=== PATIENT | male | born 1950 | race Caucasian/White ===

== ENCOUNTER 2016-06-07 11:23 | Day surgery (SDC) | payer OTHER ==
[2016-06-06 11:48] VITALS: BMI 25.5
[~2016-06-07] VITALS: Ht 180.3 cm; Wt 85.0 kg
[~2016-06-07 11:23] MED LIST: CEFAZOLIN 1 GM INJ ONE; GLYCOPYRROLATE 0.4 MG INJ ONE; LIDOCAINE 2% (SDV) 5 ML INJ ONE; METH10TA2 PO; METO50TA16 PO; NEOSTIGMINE 3 MG/3 ML SYRINGE ONE; PRED20TA PO; PROPOFOL 200 MG INJ ONE; ROCURONIUM 50 MG INJ ONE; SUCCINYLCHOLINE CHLORIDE 100 MG/5 ML SYG IV ONE
[2016-06-07] MEDS ORDERED: CEFAZOLIN 2 GM/50 ML (PMX) 50 ML IVPB ONE (12:00)
[2016-06-07 12:33] VITALS: Ht 180.3 cm; Wt 85.0 kg
[2016-06-07 12:34] VITALS: BP 160/96; PULSE 113; RESP 18
--- NOTE | 2016-06-07 12:54 | RADRPT ---
PROCEDURE: XR Chest. CLINICAL INDICATION: Preoperative for inguinal hernia repair. TECHNIQUE: Single frontal view. COMPARISON: None. FINDINGS: The lungs are clear. The heart size is normal. There is no pleural effusion. There is no pneumothorax. IMPRESSION: 1. Normal chest radiograph. RPTAT: QQ .Tomas Bowens MD, MD Date Time Electronically viewed and signed by .Tomas Bowens MD, on 06/07/2016 12:53 .R/
[2016-06-07 12:59] LABS: BASOPHILS % 0.5 % (0.0-2.0); EOSINOPHILS # 0.2 10^3/ul (0.0-0.5); EOSINOPHILS % 2.9 % (0.0-7.0); HEMATOCRIT 41.7 % (42.0-52.0); HEMOGLOBIN 14.1 g/dl (14.0-18.0); LYMPHOCYTES % 14.9 % (15.0-51.0); MEAN CORPUSCULAR HGB CONC 33.8 g/dl (32.0-37.0); MONOCYTE # 0.7 10^3/ul (0.3-0.9); MONOCYTES % 9.8 % (0.0-11.0); NEUTROPHIL # 4.8 10^3/ul (1.6-7.5); NEUTROPHILS % 71.9 % (39.0-77.0); PLATELET COUNT 74 10^3/UL (140-440); RED BLOOD COUNT 4.86 10^6/ul (4.70-6.10); RED CELL DISTRIBUTION WIDTH 13.3 % (11.5-14.5); UNCORRECTED WBC 6.7 10^3/ul (4.8-10.8); WHITE BLOOD COUNT 6.7 10^3/ul (4.8-10.8)
[2016-06-07 13:02] LABS: CONDITION 1
[2016-06-07 13:04] LABS: CREATININE 0.49 mg/dl (0.61-1.24); INR 0.93; POTASSIUM 4.4 mmol/L (3.5-5.1); PROTIME 12.5 Sec (12.2-14.2)
[2016-06-07 13:05] LABS: PARTIAL THROMBOPLASTIN TIME 33.3 Sec (25.0-35.0)
[2016-06-07] MEDS ORDERED: FENTAnyl 50 MCG/ML VIAL ONE (13:35)
[2016-06-07 13:36] LABS: PLATELET ESTIMATE PLT APPEAR DECREASED
--- NOTE | 2016-06-07 14:04 | RADRPT ---
Vent Rate: 107 bpm RR Interval: 0 msec IA Interval: 176 msec QRS Duration: 84 msec QT Interval: 322 msec QTC Interval: 429 msec P-R-T [place]: 67 - 71 - 80 degrees Sinus tachycardia Possible Anterior infarct , age undetermined Abnormal ECG Electronically Signed By: Yan Greene [id number]
[2016-06-07] MEDS: SOD CHLORIDE 0.9% 1,000 ML IV ONE ×2 (14:16→15:02)
[2016-06-07] MEDS ORDERED: DIPHENHYDRAMINE 50 MG INJ IV PRN (14:30)
[2016-06-07] MEDS ORDERED: ALBUTEROL 0.5% (NEB) 2.5 MG/0.5 ML AMP INH ONE (14:30)
[2016-06-07] MEDS ORDERED: MEPERIDINE 25 MG INJ IV PRN (14:30)
[2016-06-07] MEDS ORDERED: METOCLOPRAMIDE 10 MG INJ IV PRN (14:30)
[2016-06-07] MEDS ORDERED: FENTAnyl 50 MCG/ML VIAL IV PRN ×3 (14:30)
[2016-06-07] MEDS ORDERED: ONDANSETRON 4 MG INJ IV PRN (14:30)
[2016-06-07] MEDS ORDERED: OXYCODONE/ACETAMINOPHEN (5/325) TAB PO PRN ×2 (14:30)
[2016-06-07] MEDS ORDERED: HYDROmorphONE (0.2 MG/ML) 10ML SYG IV PRN ×3 (14:30)
[2016-06-07 15:02] VITALS: BP 123/75; PULSE 75; RESP 18
[2016-06-07 15:05] VITALS: BP 135/79; PULSE 75
[2016-06-07 15:10] VITALS: BP 134/82; PULSE 76
[2016-06-07 15:41] VITALS: BP 133/65; PULSE 59; RESP 16
--- NOTE | 2016-06-07 17:45 | OPR ---
DATE OF OPERATION: 06/07/2016 PREOPERATIVE DIAGNOSIS: Large incarcerated left inguinal hernia. POSTOPERATIVE DIAGNOSIS: Large incarcerated left inguinal hernia. OPERATION PERFORMED: Left inguinal herniorrhaphy. ANESTHESIA: General. ANESTHESIOLOGIST: LEORA RUSSELL MD SURGEON: Amador Madden MD OUTSIDE MAINTENANCE WORKER: None. INDICATIONS FOR PROCEDURE: The patient is a 66-year-old male who presented with a very longstanding extremely large left inguinal hernia extending into the left scrotum. CAT scan revealed evidence of bowel within the scrotum. The patient stated that he could sometimes reduce it if he laid down. He was seen in surgical consultation and on exam was found to have an incarcerated hernia consisten t with the radiographic findings. He was counseled as to the risks versus benefits of repair. He c onsented and was scheduled for surgery. DESCRIPTION OF PROCEDURE: The patient was brought to the operating theater, placed under general an esthesia. The left groin was then shaved, prepped and draped in usual sterile fashion. Approximate ly 6 cm incision was made directly over the visually obvious hernia. Subcutaneous tissue was dissec fabien with cautery. An extremely large hernia sac very thickened was encountered in the subcutaneous space. It contained bowel and with gentle manipulation with a gloved hand, the bowel was able to be reduced back into the abdominal cavity. The sac with extended tumor was adherent to the left testi emily. It was then opened at the proximal portion into the internal ring. It was meticulously dissec fabien off of the cord structures and then it was clamped at its base and triply ligated first with 2-0 Vicryl sutures and then with 0 Prolene suture. Proximal portion of the sac was then transected and sent for pathologic analysis. At this point, Dr. Madden spent several minutes determining whether o r not mesh reinforcement could be accomplished. Due to the sac, the spermatic vessels were complete ly encased by scar tissue as the patient had a previous abscess in this area. Dr. Madden made the de cision that it would not be prudent to place mesh due to the risk of injury to testicular artery and also to an increased likelihood of infection. Therefore, the wound was irrigated. Minimal bleedin g was controlled with cautery. A #7 flat Ad-Burns drain was then brought through the left late ral side of the lower abdomen, cut to size and laid within the wound. The skin was reapproximated w ith skin alexis. At the conclusion of the procedure, Dr. Madden palpated the left testicle and pull ed it back into its normal anatomic location within the left scrotal sac. The patient tolerated pro cedure well. ESTIMATED BLOOD LOSS: 30 mL. There were no complications and the patient was transported in stable condition to the recovery room . Dictated By: AMADOR MAY/VALENCIA Conf#: [id number] DID#: [id number]
== END 2016-06-07 17:00 | disposition home or self-care (01) ==
LOC: SDS 11:23
PROVIDERS: ATTEND Surgery Surgical Oncology
DX: K40.30 Unilateral inguinal hernia, with obstruction, without gangrene, not specified as recurrent (principal); I10 Essential (primary) hypertension; J44.9 Chronic obstructive pulmonary disease, unspecified
CPT/HCPCS: 49507; 71010; 80048; 85025; 85610; 85730; 88302; 93005; J0330; J0690; J2710; J3010; Z7512; Z7610

== ENCOUNTER 2016-06-11 11:02 | Inpatient (IN) | payer OTHER ==
[~2016-06-11] VITALS: Ht 180.3 cm; Wt 83.3 kg
--- NOTE | 2016-06-11 13:21 | ERA ---
ER Documentation Chief Complaint Date/Time DATE: 06/11/16 TIME: 13:20 Chief Complaint inguinal hernia repair 4 days ago. HPI The patient is a 36-year-old male, presenting to the ER because of worsening severe left inguinal hernia that was repaired 4 days ago. According to the patient, the left testicle has been swollen and tender ever since the surgery, it is worse today. The pain is 10/10, worse with movement. He denies fever, chills, neck pain, chest pain, dyspnea, upper abdominal pain, vomiting, dysuria , diarrhea, constipation. He does smoke, denies drinking Past medical history: Hypertension, hepatitis C Past surgical history: umbilical herniorrhaphy ROS All systems reviewed and are negative except as per history of present illness. Medications Home Meds Discontinued Reported Medications Methadone Hcl* (Methadone*) 10 Mg Tab, 40 MG PO DAILY, TAB 02/16/15 Metoprolol Succinate* (Toprol XL*) 50 Mg Tab.er.24h, 50 MG PO DAILY, TAB 02/16/15 Prednisone* (Prednisone*) 20 Mg Tab, 20 MG PO EVERY 3 DAYS, TAB 02/16/15 Allergies Allergies: Coded Allergies: Sulfa (Sulfonamide Antibiotics) (Unverified Allergy, Unknown, HIVES, ) PMhx/Soc History of Surgery: Yes (UMBILICAL HERNIA, ABCESS ) Anesthesia Reaction: No Hx Neurological Disorder: No Hx Respiratory Disorders: Yes (COPD) Hx Cardiac Disorders: Yes Hx Psychiatric Problems: No Hx Miscellaneous Medical Probl: No Hx Alcohol Use: Yes Hx Substance Use: No (USED TO DO COCAINE) Hx Tobacco Use: Yes Physical Exam Vitals Vital Signs Date Time Temp Pulse Resp B/P Pulse Ox O2 Delivery O2 Flow Rate FiO2 06/11/16 11:08 98.5 112 20 163/90 98 Physical Exam Const: No acute distress. Head: Atraumatic. Eyes: Normal Conjunctiva. ENT: Normal External Ears, Nose and Mouth. Neck: Full range of motion. No meningismus. Resp: Clear to auscultation bilaterally. Cardio: Regular rate and rhythm, no murmurs. Abd: Soft, non distended, normal bowel sounds, left inguinal hernia incision is erythematous, warm to touch; left testicle is edematous and tender to touch Skin: No petechiae or rashes. Back: No midline or flank tenderness. Ext: No cyanosis, or edema. Neur: Awake and alert. No focal deficit Psych: Normal Mood and Affect. Result Diagram: 06/11/16 1400 06/11/16 1400 Results 24 hrs Laboratory Tests Test 06/11/16 14:00 06/11/16 16:14 Activated Partial Thromboplast Time 32.6Sec Alanine Aminotransferase (ALT/SGPT) 52IU/L Albumin 3.6g/dl Albumin/Globulin Ratio 1.00 Alkaline Phosphatase 80IU/L Anion Gap 16 Aspartate Amino Transf (AST/SGOT) 40IU/L Basophils # 0.010^3/ul Basophils % 0.3% Blood Urea Nitrogen 5mg/dl Calcium Level 8.7mg/dl Carbon Dioxide Level 24mmol/L Chloride Level 102mmol/L Creatinine 0.44mg/dl Direct Bilirubin 0.00mg/dl Eosinophils # 0.010^3/ul Eosinophils % 0.4% Globulin 3.60g/dl Glucose Level 144mg/dl Hematocrit 37.2% Hemoglobin 12.6g/dl INR International Normalized Ratio 0.94 Indirect Bilirubin 0.4mg/dl Lipase 34U/L Lymphocytes # 0.910^3/ul Lymphocytes % 12.2% Mean Corpuscular Hemoglobin 29.2pg Mean Corpuscular Hemoglobin Concent 33.8g/dl Mean Corpuscular Volume 86.4fl Mean Platelet Volume 7.8fl Monocytes # 0.710^3/ul Monocytes % 9.1% Neutrophils # 6.110^3/ul Neutrophils % 78.0% Nucleated Red Blood Cells # 0.010^3/ul Nucleated Red Blood Cells % 0.0/100WBC Platelet Count 23757^3/UL Potassium Level 3.9mmol/L Prothrombin Time 12.6Sec Prothrombin Time Ratio 1.0 Red Blood Count 4.3110^6/ul Red Cell Distribution Width 13.1% Sodium Level 138mmol/L Total Bilirubin 0.4mg/dl Total Protein 7.2g/dl White Blood Count 7.810^3/ul Bedside Urine Blood Negative Bedside Urine Glucose (UA) Negative Bedside Urine Ketones (LAB) Negative Bedside Urine Leukocyte Esterase (L Negative Bedside Urine Nitrite (LAB) Negative Bedside Urine Protein (LAB) Negative Bedside Urine pH (LAB) 7.0 Current Medications Medications (Trade) Dose Ordered Sig/Chikis Route PRN Reason Start Time Stop Time Status Last Admin Dose Admin Morphine Sulfate (morphine) 4 mg ONCE ONCE IM 06/11/16 14:00 06/11/16 14:01 DC 06/11/16 14:10 Ondansetron HCl (Zofran Odt) 4 mg ONCE STAT ODT 06/11/16 13:32 06/11/16 13:34 DC 06/11/16 14:10 Lidocaine (Xylocaine 1% (Mdv) 20 ml) 20 ml ONCE ONCE SC 06/11/16 14:00 06/11/16 14:02 DC Barium Sulfate (Readi-Cat 2 ( [employer] )) 450 ml ONCE ONCE PO 06/11/16 14:00 06/11/16 14:02 DC 06/11/16 14:00 Iohexol (Omnipaque 300mg/ ml) 150 ml STK-MED ONCE .ROUTE 06/11/16 16:41 06/11/16 16:42 DC 06/11/16 17:02 IV Flush 10 ml 10 ml PRN PRN IV IV PROTOCOL 06/11/16 17:30 Piperacillin Sod/ Tazobactam Sod (Zosyn 3.375gm/ 100 ml (Pmx)) 100 ml @ 200 mls/hr ONCE ONCE IVPB 06/11/16 18:00 06/11/16 18:29 Procedures/[place] [address] Radiology Main Line: [phone] DIAGNOSTIC IMAGING REPORT Patient: PRIYANKA RUTHERFORD : 1950 Age: 66 Sex: M MR #: [id number] DOS: 06/11/16 1349 Ordering MD: ANSHUL PINZON MD Location: E/R Room/Bed: PROCEDURE: CT Abdomen and Pelvis with contrast. CLINICAL INDICATION: Pain, recent hernia surgery TECHNIQUE: CT of the abdomen and pelvis was performed on a multi-detector scanner following the uncomplicated IV administration of 100 cc of Omnipaque 300. Coronal and sagittal images were reformatted from the axial data set. One or more of the following dose reduction techniques were used: automated exposure control, adjustment of the mA and/or kV according to patient size, use of iterative reconstruction technique. CTDI = 15.15 mGy. DLP = 955.62 mGy- cm. COMPARISON: None. FINDINGS: CT abdomen: Bibasilar scarring/atelectasis is noted. The heart size is normal, without pericardial effusion. Liver, gallbladder, biliary tree, pancreas, spleen, adrenal glands and kidneys are unremarkable except for benign renal cysts. No urolithiasis or obstructive uropathy is identified. The stomach is grossly unremarkable. There is no abdominal aortic aneurysm or dissection. Aortic vascular calcifications are present. There is no retroperitoneal lymphadenopathy. The chito hepatis region is clear. CT pelvis: No bowel obstruction, free intraperitoneal air or intraperitoneal is identified. There is no diverticulosis, diverticulitis or colitis. The appendix is well visualized and normal. Urinary bladder is grossly unremarkable. Left groin skin alexis are in place. Surgical drain is seen within the superficial soft tissues of the left groin and scrotum. Gas and fluid collection is identified within the scrotum superiorly, measuring approximately 5 x 3 x 5 cm (3-180), compatible with abscess, located approximately 4 cm inferior to the tip of the surgical drain The surrounding osseous structures are remarkable for diffuse degenerative spondylosis of the spine. No osteolytic or osteoblastic lesion is detected. IMPRESSION: 1. The patient is status post recent left inguinal hernia repair. Surgical drain remains in place. 2. Abscess is seen within the superior portion of the left scrotum, measuring approximately 5 x 3 x 5 cm, located approximately 4 cm inferior to the tip of the surgical drain. 3. Aortoiliac atherosclerotic calcifications are present. RPTAT: EE .Rikki Caba MD, MD Date Time Electronically viewed and signed by .Rikki Caba MD, on 06/11/2016 17: 25 .R/ CC: ANSHUL PINZON MD MEDICAL MAKING DECISION: The patient is a 66-year-old male, presenting with acute left inguinal hernia incisional abscess. He had a PICC line placed, treated with morphine 4 mg IM and Zofran ODT for nausea and Zosyn IV with good response. The differential diagnoses considered include but are not limited to cholelithiasis, cholecystitis, cystitis, pancreatitis, hepatitis, gastritis, peptic ulcer disease, gastric ulcer, appendicitis, diverticulitis, cholangitis, choledocholithiasis, partial small bowel obstruction, incarcerated/strangulated inguinal hernia Departure Diagnosis: Primary Impression: Incisional abscess Additional Impression: Anemia Condition: Stable Comments Consultation: I discussed the patient with his surgeon Dr. Madden at 1:40 PM. He was made aware of the patient condition and accepted the consult I discussed the findings with the patient. I discussed the patient with the on- call hospitalist Dr. Diehl who was made aware of the lab, the treatment, the patient condition. The patient is admitted to medical surgery bed at 4:15 PM ANSHUL PINZON MD Jun 11, 2016 13:21
[2016-06-11] MEDS ORDERED: ONDANSETRON (ODT) 4 MG TAB ODT STA (13:32)
[2016-06-11] MEDS ORDERED: LIDOCAINE 1% (MDV) 20 ML INJ SC ONE (14:00)
[2016-06-11] MEDS ORDERED: morphine 10 MG INJ IM ONE (14:00)
[2016-06-11] MEDS ORDERED: BARIUM SULF 2.1% 450 ML BTL (BERRY SMOOTHIE) PO ONE (14:00)
[2016-06-11 14:09] LABS: BASOPHILS % 0.3 % (0.0-2.0); EOSINOPHILS % 0.4 % (0.0-7.0); HEMATOCRIT 37.2 % (42.0-52.0); HEMOGLOBIN 12.6 g/dl (14.0-18.0); LYMPHOCYTES # 0.9 10^3/ul (0.8-2.9); LYMPHOCYTES % 12.2 % (15.0-51.0); MEAN CORPUSCULAR HEMOGLOBIN 29.2 pg (29.0-33.0); MEAN CORPUSCULAR HGB CONC 33.8 g/dl (32.0-37.0); MEAN CORPUSCULAR VOLUME 86.4 fl (82.0-101.0); MEAN PLATELET VOLUME 7.8 fl (7.4-10.4); MONOCYTE # 0.7 10^3/ul (0.3-0.9); MONOCYTES % 9.1 % (0.0-11.0); NEUTROPHIL # 6.1 10^3/ul (1.6-7.5); PLATELET COUNT 151 10^3/UL (140-440); RED BLOOD COUNT 4.31 10^6/ul (4.70-6.10); RED CELL DISTRIBUTION WIDTH 13.1 % (11.5-14.5); UNCORRECTED WBC 7.8 10^3/ul (4.8-10.8); WHITE BLOOD COUNT 7.8 10^3/ul (4.8-10.8)
[2016-06-11 14:20] LABS: INR 0.94; PROTIME 12.6 Sec (12.2-14.2)
[2016-06-11 14:21] LABS: PARTIAL THROMBOPLASTIN TIME 32.6 Sec (25.0-35.0)
[2016-06-11 14:28] LABS: ALBUMIN 3.6 g/dl (3.3-4.9)
[2016-06-11 14:29] LABS: POTASSIUM 3.9 mmol/L (3.5-5.1)
[2016-06-11 14:30] LABS: CONDITION 1
[2016-06-11 14:31] LABS: BILIRUBIN,INDIRECT 0.4 mg/dl (0-1.1); BILIRUBIN,TOTAL 0.4 mg/dl (0.2-1.3); CREATININE 0.44 mg/dl (0.61-1.24); TOTAL PROTEIN 7.2 g/dl (6.1-8.1)
[2016-06-11 14:32] LABS: CALCIUM 8.7 mg/dl (8.4-10.2)
[2016-06-11 16:13] LABS: URINE BLOOD (Dip) POC Negative (NEGATIVE)
--- NOTE | 2016-06-11 16:28 | RADRPT ---
PROCEDURE: Chest x-ray CLINICAL INDICATION: Post PICC line TECHNIQUE: Chest single view COMPARISON: Earlier the same day FINDINGS: In the interval, the right arm PICC line has been adjusted the tip now lies at the right atrial SVC junction. Heart is normal in size. Bony vessels normal in caliber. Lungs clear. The costophrenic angles are sharp. There is advanced degenerative change right glenohumeral joint IMPRESSION: 1. Interval adjustment of right arm PICC line with tip now at the right atrial SVC junction. 2. Advanced degenerative change right glenohumeral joint RPTAT: HH .Raul Coles MD, MD Date Time Electronically viewed and signed by .Raul Coles MD, on 06/11/2016 16:28 .W/
[2016-06-11] MEDS ORDERED: IOHEXOL 300MG/ML 150 ML BTL ONE (16:41)
--- NOTE | 2016-06-11 16:49 | RADRPT ---
PROCEDURE: XR Chest. CLINICAL INDICATION: Status post PICC line placement. TECHNIQUE: Single AP portable chest COMPARISON: 06/07/2069 FINDINGS: The cardiomediastinal silhouette is within normal limits. Right PICC line catheter tip overlying the proximal superior vena cava. . Right base linear scarring and/or atelectasis. No pleural effusion or focal infiltrate. Mild prominence pulmonary vascularity. Severe stable right degenerative watts es of the humeral head and of the humeral joint.. IMPRESSION: No evidence for active cardiopulmonary disease. RPTAT:AAJJ Physician Valentine Date Time Electronically viewed and signed by Physician Valentine on 06/11/2016 16:49 MYNOR/
--- NOTE | 2016-06-11 16:52 | RADRPT ---
PROCEDURE: XR Chest. CLINICAL INDICATION: Right PICC line catheter placement. TECHNIQUE: Single AP portable chest COMPARISON: 06/11/2016 FINDINGS: The cardiomediastinal silhouette is within normal limits. Right PICC line catheter tip overlying the proximal superior vena cava with mild redundancy. This should be withdrawn 34 cm and reinserted .T he lungs are clear though pleural effusion or focal consolidation. Right lower lobe linear scarring or atelectasis. Severe degenerative changes of the right humeral head and glenohumeral joint.. IMPRESSION: Right PICC line catheter tip overlying the superior vena cava proximally with slight redundancy. Th is should be withdrawn and reinserted as described above.. RPTAT:AAJJ Physician Valentine Date Time Electronically viewed and signed by Physician Valentine on 06/11/2016 16:51 MYNOR/
--- NOTE | 2016-06-11 17:17 | RADRPT ---
PROCEDURE: Ultrasound proximal upper extremity for PICC placement CLINICAL INDICATION: PICC placement TECHNIQUE: Sonographic evaluation of the proximal right upper extremity vessels was performed utiliz ing a high-frequency linear transducer. COMPARISON: None available FINDINGS: Limited evaluation of the proximal upper extremity for vascular access for PICC placement. Grossly, no abnormality is seen. IMPRESSION: 1. Unremarkable limited proximal right upper extremity ultrasound for PICC placement. RPTAT: PP .Rikki Caba MD, MD Date Time Electronically viewed and signed by .Rikki Caba MD, on 06/11/2016 17:16 .R/
--- NOTE | 2016-06-11 17:26 | RADRPT ---
PROCEDURE: CT Abdomen and Pelvis with contrast. CLINICAL INDICATION: Pain, recent hernia surgery TECHNIQUE: CT of the abdomen and pelvis was performed on a multi-detector scanner following the un complicated IV administration of 100 cc of Omnipaque 300. Coronal and sagittal images were reformat fabien from the axial data set. One or more of the following dose reduction techniques were used: auto mated exposure control, adjustment of the mA and/or kV according to patient size, use of iterative reconstruction technique. CTDI = 15.15 mGy. DLP = 955.62 mGy-cm. COMPARISON: None. FINDINGS: CT abdomen: Bibasilar scarring/atelectasis is noted. The heart size is normal, without pericardial effusion. L iver, gallbladder, biliary tree, pancreas, spleen, adrenal glands and kidneys are unremarkable excep t for benign renal cysts. No urolithiasis or obstructive uropathy is identified. The stomach is gr ossly unremarkable. There is no abdominal aortic aneurysm or dissection. Aortic vascular calcifications are present. T here is no retroperitoneal lymphadenopathy. The chito hepatis region is clear. CT pelvis: No bowel obstruction, free intraperitoneal air or intraperitoneal is identified. There is no divert iculosis, diverticulitis or colitis. The appendix is well visualized and normal. Urinary bladder i s grossly unremarkable. Left groin skin alexis are in place. Surgical drain is seen within the arora perficial soft tissues of the left groin and scrotum. Gas and fluid collection is identified within the scrotum superiorly, measuring approximately 5 x 3 x 5 cm (3-180), compatible with abscess, locat ed approximately 4 cm inferior to the tip of the surgical drain The surrounding osseous structures are remarkable for diffuse degenerative spondylosis of the spine. No osteolytic or osteoblastic lesion is detected. IMPRESSION: 1. The patient is status post recent left inguinal hernia repair. Surgical drain remains in place. 2. Abscess is seen within the superior portion of the left scrotum, measuring approximately 5 x 3 x 5 cm, located approximately 4 cm inferior to the tip of the surgical drain. 3. Aortoiliac atherosclerotic calcifications are present. RPTAT: EE .Rikki Caba MD, MD Date Time Electronically viewed and signed by .Rikki Caba MD, MD on 06/11/2016 17:25 .R/
[2016-06-11] MEDS ORDERED: PIPER-TAZO 3.375 GM IV (PMX) 100 ML IVPB ONE (18:00)
[2016-06-11] MEDS ORDERED: ACETAMINOPHEN 325 MG TAB PO PRN (19:30)
[2016-06-11] MEDS ORDERED: ONDANSETRON 4 MG INJ IV PRN (19:30)
[2016-06-11] MEDS ORDERED: VANCOMYCIN IV PER PHARMACY XX SCH (19:30)
[2016-06-11 20:08] VITALS: PULSE 96; TEMP 98.4
--- NOTE | 2016-06-11 20:43 | HP ---
Date/Time of Note Date/Time of Note DATE: 06/11/16 TIME: 20:32 Assessment/Plan VTE Prophylaxis VTE Prophylaxis Intervention: contraindicated VTE Contraindication Reason: blood coagulation disorder Lines/Catheters IV Catheter Type (from Nrs): PICC Line Central line still needed: Yes Assessment/Plan Assessment/Plan 66 yo male with a past medical history of essential hypertension, who was was here on 06/07/2016 for an left inguinal hernia repair, now complaining of scrotal pain and swelling. 1. Scrotal abscess post - operative - will admit the patient to med/surg, consult Dr. Madden/Jeff for management, continue with pain management, needs OR for I and D, IV antibiotics, if worsening, possible consult to urology. 2. Essential hypertension - prn hydralazine 3. GI ppx - pepcid po 4. DVT ppx - heparin answered all of his questions. as per clinical course. this history and physical took greater then 45 minutes to complete HPI/ROS Admit Date/Time Admit Date/Time Jun 11, 2016 at 19:31 Hx of Present Illness 66 yo male with a past medical history of essential hypertension, who was was here on 06/07/2016 for an left inguinal hernia repair, now complaining of scrotal pain and swelling. He states that since he left the hospital, his scrotum has been enlarging and feeling "heavy". He noticed pain, but could not differentiate between post-operative vs new pain. He does have a drain that he has been emptying serosanguineous fluid from. Otherwise he complains of fevers, chills and pain radiating up from his groin into his left inguinal canal. He denies any hematuria, dysuria, discharge, nausea/vomiting/diarrhea/constipation , loss of consciousness, headaches, bowel irregularities, chest pain, shortness of breath or other constitutional symptoms. ED course: IV antibiotics, surgery was consulted, CT abd/pelvis completed - see procedures ROS 14 point review of systems completed, please refer to HPI for any positive findings PMH/Family/Social Past Medical History Medical History: hypertension Past Surgical History umbilical hernia repair, abscess I and D, left inguinal hernia repair - 4 days ago Family History Significant Family History: no pertinent family hx Social History Alcohol Use: sober (quit drinking 3 months ago) Smoking Status: Current every day smoker (1-2 cig/day) Drug Use: heroin (previous user) Exam/Review of Systems Vital Signs Vitals Vital Signs Date Time Temp Pulse Resp B/P Pulse Ox O2 Delivery O2 Flow Rate FiO2 06/11/16 20:08 98.4 96 18 126/80 98 Room Air Exam Exam Gen Kimberley: moderate distress 2/2 to inguinal/scrotal pain, AAOx4 HEENT: NC/AT, PERRLA, EOMI, no pharyngeal erythema, no tonsillar exudates, no lymphadenopathy, no JVD, no carotid bruits NECK: supple, no thyromegaly THORAX: symmetrical, no obvious deformities CV: S1S2, RRR, no M/G/R Lungs: CTAB no W/C/R/R Abd: soft, NT/ND, +BS, no rebound, no guarding, neg HSM EXT: no edema, no ecchymosis, no clubbing, FROM : Scrotal edema, erythema tenderness to palpation, drain noted - serosanguineous drainage Neuro: CN II-XII grossly intact, no focal deficits Psych: good mentation, alert and oriented, good mood and affect Skin: multiple tattoos Labs Result Diagram: 06/11/16 1400 06/11/16 1400 Medications Medications Current Medications IV Flush 10 ml 10 ml PRN PRN IV IV PROTOCOL; Start 06/11/16 at 17:30 Piperacillin Sod/ Tazobactam Sod (Zosyn 3.375gm/ 100 ml (Pmx)) 100 ml @ 200 mls /hr Q8 IVPB ; Start 06/11/16 at 22:00 Morphine Sulfate (morphine) 2 mg Q4H PRN IV pain; Start 06/11/16 at 19:30 Ondansetron HCl (Zofran Inj) 4 mg Q6H PRN IV NAUSEA AND/OR VOMITING; Start at 19:30 Acetaminophen (Tylenol Tab) 650 mg Q6H PRN PO PAIN AND OR ELEVATED TEMP; Start 06/11/16 at 19:[address] abd/pelvis IMPRESSION: 1. The patient is status post recent left inguinal hernia repair. Surgical drain remains in place. 2. Abscess is seen within the superior portion of the left scrotum, measuring approximately 5 x 3 x 5 cm, located approximately 4 cm inferior to the tip of the surgical drain. 3. Aortoiliac atherosclerotic calcifications are present. DIANE MORRIS MD Jun 11, 2016 20:42
[2016-06-11 20:52] VITALS: BP 114/74; RESP 18
[2016-06-11 21:00] VITALS: Ht 180.3 cm; Wt 83.3 kg
[2016-06-11] MEDS: HEPARIN 5,000 UNIT/0.5 ML SYG SC SCH (21:00)
[2016-06-11] MEDS ORDERED: VANCOMYCIN 1.5 GM in SOD CHLORIDE 0.9% 250 ML IVPB SCH (22:00)
[2016-06-11] MEDS: PIPER-TAZO 3.375 GM IV (PMX) 100 ML IVPB SCH (22:32)
[2016-06-11] MEDS: SOD CHLORIDE 0.9% 1,000 ML IV SCH (22:32)
[2016-06-12] MEDS: PIPER-TAZO 3.375 GM IV (PMX) 100 ML IVPB SCH ×3 (05:28→21:36)
[2016-06-12 06:34] LABS: BASOPHILS % 0.3 % (0.0-2.0); EOSINOPHILS # 0.3 10^3/ul (0.0-0.5); EOSINOPHILS % 4.4 % (0.0-7.0); HEMATOCRIT 33.3 % (42.0-52.0); HEMOGLOBIN 11.7 g/dl (14.0-18.0); LYMPHOCYTES # 1.2 10^3/ul (0.8-2.9); LYMPHOCYTES % 21.3 % (15.0-51.0); MEAN CORPUSCULAR HGB CONC 35.3 g/dl (32.0-37.0); MEAN CORPUSCULAR VOLUME 85.2 fl (82.0-101.0); MEAN PLATELET VOLUME 8.2 fl (7.4-10.4); MONOCYTE # 0.7 10^3/ul (0.3-0.9); NEUTROPHIL # 3.6 10^3/ul (1.6-7.5); PLATELET COUNT 134 10^3/UL (140-440); RED BLOOD COUNT 3.91 10^6/ul (4.70-6.10); RED CELL DISTRIBUTION WIDTH 12.7 % (11.5-14.5); UNCORRECTED WBC 5.8 10^3/ul (4.8-10.8); WHITE BLOOD COUNT 5.8 10^3/ul (4.8-10.8)
[2016-06-12 06:59] LABS: POTASSIUM 4.2 mmol/L (3.5-5.1)
[2016-06-12 07:02] LABS: CREATININE 0.57 mg/dl (0.61-1.24)
[2016-06-12 07:03] LABS: CALCIUM 8.5 mg/dl (8.4-10.2); MAGNESIUM 2.1 mg/dl (1.7-2.5)
[2016-06-12 07:06] LABS: CONDITION 1
[2016-06-12 08:01] VITALS: BP 133/85; RESP 18
[2016-06-12] MEDS: VANCOMYCIN 1.25 GM in SOD CHLORIDE 0.9% 250 ML IVPB SCH ×2 (11:15→22:27)
--- NOTE | 2016-06-12 11:39 | PN ---
Date/Time of Note Date/Time of Note DATE: 06/12/16 TIME: 11:32 Assessment/Plan VTE Prophylaxis VTE Prophylaxis Intervention: SCD's Lines/Catheters IV Catheter Type (from Nrsg): PICC Line Central line still needed: Yes Urinary Cath still in place: No Assessment/Plan Assessment/Plan 66 yo male with a past medical history of essential hypertension, who was was here on 06/07/2016 for an left inguinal hernia repair, now complaining of scrotal pain and swelling. 1. L Scrotal abscess versus fluid collection post - operative - f/u surgical paln / continue empiric abx / pain control / leave drain in place for now 2. Essential hypertension - resume home meds 3. Tobacco abuse Tobacco cessation counselling done and will continue to be reinforced throughout hospitalization. GI ppx - pepcid po DVT ppx - heparin Subjective 24 Hr Interval Summary Free Text/Dictation no new symptoms Wants to eat Exam/Review of Systems Vital Signs Vitals Vital Signs Date Time Temp Pulse Resp B/P Pulse Ox O2 Delivery O2 Flow Rate FiO2 06/12/16 08:01 97.8 91 18 133/85 96 06/11/16 20:08 Room Air Intake and Output 06/11/16 06/11/16 06/12/16 15:00 23:00 07:00 Intake Total 575 ml Output Total 0 ml Balance 575 ml Exam Constitutional: alert, oriented Psych: anxiety Head: atraumatic, normocephalic Eyes: PERRL Neck: supple Respiratory: clear to auscultation, normal air movement Cardiovascular: nl pulses, regular rate and rhythm Gastrointestinal: bowel sounds, non-tender, soft Genitourinary - Male: other (Scrotal edema ++, erythema tenderness to palpation , drain noted - serosanguineous drainage), No nl penis, No nl scrotum Extremities: No edema Neurological: nl mental status, nl speech, nl strength Skin: rash or lesions Results Result Diagram: 06/12/16 0511 06/12/16 0511 Results 24 hrs Laboratory Tests Test 06/11/16 14:00 06/11/16 16:14 06/12/16 05:11 Activated Partial Thromboplast Time 32.6 Alanine Aminotransferase (ALT/SGPT) 52 Albumin 3.6 Albumin/Globulin Ratio 1.00 Alkaline Phosphatase 80 Anion Gap 16 14 Aspartate Amino Transf (AST/SGOT) 40 Basophils # 0.0 0.0 Basophils % 0.3 0.3 Blood Urea Nitrogen 5 L 7 Calcium Level 8.7 8.5 Carbon Dioxide Level 24 25 Chloride Level 102 102 Creatinine 0.44 L 0.57 L Direct Bilirubin 0.00 Eosinophils # 0.0 0.3 Eosinophils % 0.4 4.4 Globulin 3.60 H Glucose Level 144 97 # Hematocrit 37.2 L 33.3 L Hemoglobin 12.6 L 11.7 L INR International Normalized Ratio 0.94 Indirect Bilirubin 0.4 Lipase 34 Lymphocytes # 0.9 1.2 Lymphocytes % 12.2 L 21.3 Mean Corpuscular Hemoglobin 29.2 30.0 Mean Corpuscular Hemoglobin Concent 33.8 35.3 Mean Corpuscular Volume 86.4 85.2 Mean Platelet Volume 7.8 8.2 Monocytes # 0.7 0.7 Monocytes % 9.1 12.0 H Neutrophils # 6.1 3.6 Neutrophils % 78.0 H 62.0 Nucleated Red Blood Cells # 0.0 0.0 Nucleated Red Blood Cells % 0.0 0.0 Platelet Count 151 # 134 L Potassium Level 3.9 4.2 Prothrombin Time 12.6 Prothrombin Time Ratio 1.0 Red Blood Count 4.31 L 3.91 L Red Cell Distribution Width 13.1 12.7 Sodium Level 138 137 Total Bilirubin 0.4 Total Protein 7.2 White Blood Count 7.8 5.8 # Bedside Urine Blood Negative Bedside Urine Glucose (UA) Negative Bedside Urine Ketones (LAB) Negative Bedside Urine Leukocyte Esterase (L Negative Bedside Urine Nitrite (LAB) Negative Bedside Urine Protein (LAB) Negative Bedside Urine pH (LAB) 7.0 Magnesium Level 2.1 Medications Medications Current Medications IV Flush 10 ml 10 ml PRN PRN IV IV PROTOCOL; Start 06/11/16 at 17:30 Piperacillin Sod/ Tazobactam Sod (Zosyn 3.375gm/ 100 ml (Pmx)) 100 ml @ 200 mls /hr Q8 IVPB Last administered on 06/12/16t 05:28; Admin Dose 200 MLS/HR; Start 06/11/16 at 22:00 Morphine Sulfate (morphine) 2 mg Q4H PRN IV pain; Start 06/11/16 at 19:30 Ondansetron HCl (Zofran Inj) 4 mg Q6H PRN IV NAUSEA AND/OR VOMITING; Start at 19:30 Acetaminophen (Tylenol Tab) 650 mg Q6H PRN PO PAIN AND OR ELEVATED TEMP; Start 06/11/16 at 19:30 Heparin Sodium (Porcine) 5000 unit 5,000 unit BID SC ; Start 06/11/16 at 21:00 Vancomycin HCl 1.25 gm/Sodium Chloride 250 ml @ 83.333 mls/ hr Q12H IVPB Last administered on 06/12/16 11:15; Admin Dose 83.333 MLS/HR; Start 06/12/16 at 10: 00 Sodium Chloride (NS) 1,000 ml @ 75 mls/hr [id number] IV Last administered on 06/11 22:32; Admin Dose 75 MLS/HR; Start 06/11/16 at 22:30 Miscellaneous Information (*Rx Drug Level Order Reminder*) VANCO TROUGH @ 0, 900 ON... ONCE ONCE XX ; Start 06/13/16 at 09:00; Stop 06/13/16 at 09:01 GARRISON EDGE Jun 12, 2016 11:39
[2016-06-12] MEDS: SOD CHLORIDE 0.9% 1,000 ML IV SCH ×2 (11:50→22:28)
[2016-06-12] MEDS: HEPARIN 5,000 UNIT/0.5 ML SYG SC SCH ×2 (12:35→21:43)
[2016-06-12] MEDS: morphine 2 MG INJ IV PRN ×2 (13:44→20:42)
--- NOTE | 2016-06-12 13:53 | CONS ---
DATE OF ADMISSION: 06/11/2016 DATE OF CONSULTATION: 06/12/2016 INFECTIOUS DISEASE CONSULTATION REASON FOR CONSULTATION: Antibiotic management. HISTORY OF PRESENT ILLNESS: Rosalio Shen is a 66-year-old male with past medical history of essent ial hypertension who was here on , 06/07/2016, for a left inguinal hernia repair and who is now complaining of scrotal pain and swelling. Past problems include: 1. Hypertension. 2. Status post left inguinal repair. 3. Status post abscess I and D. 4. Left inguinal repair as noted, he had an umbilical hernia and hernia repair, but he had a left i nguinal hernia repair 4 days ago. He noticed that his scrotum and enlarging and feeling heavy, he noticed pain. He has a drain that h e has been emptying, it has serosanguineous fluid. Otherwise he complains of fever and chills and p ain radiating from his groin into his left inguinal canal. He denies any hematuria, dysuria, or mackenzie rtness of breath. The CT scan was done in the emergency room. On admission, his white count was 7. 8, H and H of 12.6 and 37.2, platelet count 151,000. BUN and creatinine 5 and 0.44, platelet count 144, glucose 144,000. The patient was started on Zosyn. A CT scan of the abdomen shows recent left inguinal hernia repair, surgical drain remains in place, abscess is seen within the superior portio n of the left scrotum measuring 5 x 3 x 5 cm located approximately 4 cm inferior to the tip of the s urgical drain. aortoiliac calcifications are present. PAST MEDICAL HISTORY: Operations as outlined. FAMILY HISTORY: No family history. SOCIAL HISTORY: The patient has a history of hypertension. SOCIAL HISTORY: He quit drinking 3 months ago. HABITS: He is an every day smoker, 1 to 2 cigarettes per day. Drug use: He is a previous user of heroin. REVIEW OF SYSTEMS: Noncontributory. PHYSICAL EXAMINATION: GENERAL: The patient is a well-developed, well-nourished male who is alert, responsive, in no acute distress. VITAL SIGNS: Stable. He is afebrile. SKIN: Without generalized rash. HEENT: Within normal limits. NECK: Supple. LYMPH NODES: None palpable. CHEST: Decreased breath sounds at the bases. HEART: Without murmur or gallop. ABDOMEN: Soft, nontender, without organosplenomegaly or masses. EXTREMITIES: Without cyanosis, clubbing, or edema. RECTAL AND GENITAL: Scrotal edema with erythema, tenderness to palpation. Drain is noted, he seros anguineous drainage. NEUROLOGICAL: Within normal limits. IMPRESSION AND PLAN: The patient requires replacement of the drain and possible surgical interventi on. We will continue him on Zosyn. He had a PICC line insertion and should be seen by Dr. Madden or Dr. Aguilar. He is on vancomycin and Zosyn. Dictated By: RICARDO HARRIS MD, JD/VALENCIA Conf#: [id number] DID#: [id number]
[2016-06-12 19:50] VITALS: BP 129/76; RESP 18
--- NOTE | 2016-06-12 20:35 | CONS ---
DATE OF ADMISSION: 06/11/2016 DATE OF CONSULTATION: 06/12/2016 HISTORY OF PRESENT ILLNESS AND CHIEF COMPLAINT: This is a 66-year-old gentleman who was admitted yesterday afternoon through the emergency room because he was complaining of swelling and pain of the left scrotal area. Apparently, the patient had an operation of left inguinal/scrotal hernia done on 06/07/2016 and said it was an outpatient same day surgery and then after operation he goes home. He states that when he got home, he felt that there is some swelling and gradually the swelling increased in size. He has tolerated it gradually was with more pain and probably some fever and chills. Eventually , the swelling was so much and was red and tender that he came to the hospital on 06/11/2016, namely yester, Saturday. He was seen in the emergency room by emergency room physician and was evaluated. He was found to have quite swollen left scrotum, probably slightly right scrotal area and distended, tense, slightly warm, erythematous. A CT scan of the abdomen and pelvis was ordered, which was done, and revealed a CT scan of the pelvis was read as the presence of recent left inguinal hernia repair. Surgical drain remains in place. Abscess is seen within the superior portion of the left scrotum measuring 5 x 3 x 5 cm located approximately 4 cm inferior to the tip of the surgical drain. Aortobiiliac calcifications are present. This was a report of the CT scan. WBC on admission yesterday was 7800 with 78% segmented. On admission, also vital signs were as follows: 98.5 temperature, heart rate 112, respirations 20 , blood pressure 163/90, saturation 98% on room air. On admission yesterday, BUN was 5, creatinine was 0.44. INR was 0.94, normal. With the impression of swelling of the left scrotum with fluid collection, possible abscess, patient was admitted, started on Zosyn and vancomycin and surgical consultation was requested. PAST MEDICAL HISTORY: History of high blood pressure. PAST SURGICAL HISTORY: History of umbilical hernia repair in the past and also incision and drainage of an abscess in the left groin/left lower quadrant area due to injection of the heroin that the patient used to do many years ago. FAMILY HISTORY: Unremarkable. SOCIAL HISTORY: The patient occasionally takes 1 or 2 cigarettes per day. He used to drink, but has quit drinking and is not using any drugs. REVIEW OF SYSTEMS: As above. PHYSICAL EXAMINATION: GENERAL: The patient is alert, awake, oriented x3, lying down on the bed. VITAL SIGNS: Today is as follows: Temperature 97.8, heart rate 91 and regular , respirations 18, blood pressure 133/85, saturation 96% on room air. HEENT: Within normal limits. NECK: Trachea is in midline. No thyroid enlargement. No adenopathy. HEART: Regular rhythm. No murmur. LUNGS: Clear to auscultation. On the right arm, there is a PICC line inserted. ABDOMEN: Soft. There is no evidence of pathology in the abdomen. Bowel sound is normal. GENITOURINARY: External genitalia area and groins, there is a line of incision over the left groin area with alexis in place. There is a Ad- Burns drain coming out, draining that area. There is slight serosanguineous fluid in that Ad-Burns, not bloody. The left scrotum is quite distended and elongated. It is firm. It is hard relatively. There is no fluctuation in that. It is slightly tender, slightly warm, and erythematous. IMPRESSION AND PLAN: A 66-year-old patient: 1. Status post left inguinal scrotal hernia repair. 2. Swelling of the left scrotum and the possible contents of the area following the operation. Apparently, there is some fluid collection, which they have read it as an abscess. I doubt it would be an abscess, but this could be a hematoma or a mixture of fluid and blood. Also could be some swelling of the wall of the scrotum plus swelling of the left testicle as well due to probably a slight damage to the circulation. As I talked to Dr. Madden, the primary surgeon, he mentioned about the sac and maybe there is hydrocele formation of the remaining of the sac in the scrotum as well. PLAN: We will keep the patient on regular diet as he has been having bowel movement and there is no problem with that. We will continue antibiotic as has been started by primary admitting physician and continued by infectious disease , which is Zosyn and vancomycin. Elevation of the scrotum, which is possible with leaving some towel underneath that. The patient has been started on heparin 5000 q.12h, but apparently patient is not willing to continue that because he is afraid of his platelet count. Sequential compression device. GI prophylaxis. I will discuss with Dr. Madden to see if he has any plans for possible surgical intervention to drain the fluid or to proceed for performance of any other additional procedure. Meanwhile, we continue current treatment. Dictated By: HARLEY VIDALES MD PS/NTS Conf#: [id number] DID#: [id number] MTDD
[2016-06-13] MEDS: morphine 2 MG INJ IV PRN ×4 (00:46→14:07)
[2016-06-13 05:28] LABS: BASOPHILS % 0.5 % (0.0-2.0); EOSINOPHILS # 0.3 10^3/ul (0.0-0.5); EOSINOPHILS % 4.6 % (0.0-7.0); HEMATOCRIT 35.1 % (42.0-52.0); LYMPHOCYTES # 1.1 10^3/ul (0.8-2.9); LYMPHOCYTES % 19.4 % (15.0-51.0); MEAN CORPUSCULAR HEMOGLOBIN 29.6 pg (29.0-33.0); MEAN CORPUSCULAR HGB CONC 34.3 g/dl (32.0-37.0); MEAN CORPUSCULAR VOLUME 86.4 fl (82.0-101.0); MEAN PLATELET VOLUME 7.9 fl (7.4-10.4); MONOCYTE # 0.9 10^3/ul (0.3-0.9); MONOCYTES % 14.7 % (0.0-11.0); NEUTROPHIL # 3.6 10^3/ul (1.6-7.5); NEUTROPHILS % 60.8 % (39.0-77.0); PLATELET COUNT 137 10^3/UL (140-440); RED BLOOD COUNT 4.06 10^6/ul (4.70-6.10); RED CELL DISTRIBUTION WIDTH 12.9 % (11.5-14.5); UNCORRECTED WBC 5.9 10^3/ul (4.8-10.8); WHITE BLOOD COUNT 5.9 10^3/ul (4.8-10.8)
[2016-06-13 05:38] LABS: POTASSIUM 3.9 mmol/L (3.5-5.1)
[2016-06-13 05:41] LABS: CREATININE 0.56 mg/dl (0.61-1.24)
[2016-06-13 05:42] LABS: CALCIUM 8.4 mg/dl (8.4-10.2)
[2016-06-13 05:47] LABS: CONDITION 1
[2016-06-13] MEDS: PIPER-TAZO 3.375 GM IV (PMX) 100 ML IVPB SCH ×3 (06:04→22:45)
[2016-06-13 07:39] VITALS: BP 137/77; RESP 19
--- NOTE | 2016-06-13 09:09 | PN ---
Date/Time of Note Date/Time of Note DATE: 06/13/16 TIME: 09:08 Assessment/Plan VTE Prophylaxis VTE Prophylaxis Intervention: SCD's Lines/Catheters IV Catheter Type (from Nrsg): PICC Line Urinary Cath still in place: No Assessment/Plan Assessment/Plan 66 yo male with a past medical history of essential hypertension, who was was here on 06/07/2016 for an left inguinal hernia repair, now complaining of scrotal pain and swelling. 1. L Scrotal abscess versus fluid collection post - operative - f/u surgical paln / continue empiric abx / pain control / leave drain in place for now 2. Essential hypertension - resume home meds 3. Tobacco abuse Tobacco cessation counselling done and will continue to be reinforced throughout hospitalization. GI ppx - pepcid po DVT ppx - heparin Subjective 24 Hr Interval Summary Free Text/Dictation Patient seen and examined. Exam/Review of Systems Vital Signs Vitals Vital Signs Date Time Temp Pulse Resp B/P Pulse Ox O2 Delivery O2 Flow Rate FiO2 06/13/16 07:39 97.0 67 19 137/77 98 06/11/16 20:08 Room Air Intake and Output 06/12/16 06/12/16 06/13/16 15:00 23:00 07:00 Intake Total 987 ml 1350 ml Output Total 2 ml Balance 985 ml 1350 ml Exam Constitutional: alert, oriented Psych: anxiety Head: atraumatic, normocephalic Eyes: PERRL Neck: supple Respiratory: clear to auscultation, normal air movement Cardiovascular: nl pulses, regular rate and rhythm Gastrointestinal: bowel sounds, non-tender, soft Genitourinary - Male: other (Scrotal edema ++, erythema tenderness to palpation , drain noted - serosanguineous drainage), No nl penis, No nl scrotum Extremities: No edema Neurological: nl mental status, nl speech, nl strength Skin: rash or lesions Results Result Diagram: 06/13/165 06/13/165 Results 24 hrs Laboratory Tests Test 06/13/16 04:55 Anion Gap 14 Basophils # 0.0 Basophils % 0.5 Blood Urea Nitrogen 9 Calcium Level 8.4 Carbon Dioxide Level 26 Chloride Level 105 Creatinine 0.56 L Eosinophils # 0.3 Eosinophils % 4.6 Glucose Level 96 Hematocrit 35.1 L Hemoglobin 12.0 L Lymphocytes # 1.1 Lymphocytes % 19.4 Mean Corpuscular Hemoglobin 29.6 Mean Corpuscular Hemoglobin Concent 34.3 Mean Corpuscular Volume 86.4 Mean Platelet Volume 7.9 Monocytes # 0.9 Monocytes % 14.7 H Neutrophils # 3.6 Neutrophils % 60.8 Nucleated Red Blood Cells # 0.0 Nucleated Red Blood Cells % 0.0 Platelet Count 137 L Potassium Level 3.9 Red Blood Count 4.06 L Red Cell Distribution Width 12.9 Sodium Level 141 White Blood Count 5.9 Medications Medications Current Medications IV Flush 10 ml 10 ml PRN PRN IV IV PROTOCOL; Start 06/11/16 at 17:30 Piperacillin Sod/ Tazobactam Sod (Zosyn 3.375gm/ 100 ml (Pmx)) 100 ml @ 200 mls /hr Q8 IVPB Last administered on 06/13/16 06:04; Admin Dose 200 MLS/HR; Start 06/11/16 at 22:00 Morphine Sulfate (morphine) 2 mg Q4H PRN IV pain Last administered on 06:04; Admin Dose 2 MG; Start 06/11/16 at 19:30 Ondansetron HCl (Zofran Inj) 4 mg Q6H PRN IV NAUSEA AND/OR VOMITING; Start at 19:30 Acetaminophen (Tylenol Tab) 650 mg Q6H PRN PO PAIN AND OR ELEVATED TEMP; Start 06/11/16 at 19:30 Heparin Sodium (Porcine) 5000 unit 5,000 unit BID SC Last administered on 21:43; Admin Dose 5,000 UNIT; Start 06/11/16 at 21:00 Vancomycin HCl 1.25 gm/Sodium Chloride 250 ml @ 83.333 mls/ hr Q12H IVPB Last administered on 06/12/16 22:27; Admin Dose 83.333 MLS/HR; Start 06/12/16 at 10: 00 Sodium Chloride (NS) 1,000 ml @ 75 mls/hr [id number] IV Last administered on 06/12 22:28; Admin Dose 75 MLS/HR; Start 06/11/16 at 22:30 GARRISON EDGE Jun 13, 2016 09:09
[2016-06-13] MEDS: HEPARIN 5,000 UNIT/0.5 ML SYG SC SCH ×2 (09:15→20:52)
[2016-06-13] MEDS: VANCOMYCIN 1.25 GM in SOD CHLORIDE 0.9% 250 ML IVPB SCH (11:34)
[2016-06-13] MEDS ORDERED: HYDROCODONE/APAP (5/325) TAB PO PRN (13:00)
--- NOTE | 2016-06-13 14:15 | PN ---
DATE: 06/13/2016 SUBJECTIVE: Patient feels better, pain is less, she thinks that the swelling is going down. LABORATORY DATA: WBC 5900 with normal neutrophils. OBJECTIVE VITAL SIGNS: As follows: Temperature 97, heart rate 67, respirations 19, blood pressure 137/77, satu ration 98%. GENITOURINARY: Genitalia examination reveals that the erythema is less, swelling is less, probably 10% to 15%, has decreased in the amount of swelling, now it is possible to move the scrotum a little bit back and up and down. ASSESSMENT: The patient is responding to treatment. Further antibiotics and rest. PLAN: Continue current care, have the patient elevate the scrotum when he is in bed with putting a couple of pillows, a couple of towels under the scrotum. Dictated By: HARLEY YU/[place] Conf#: [id number] DID#: [id number]
[2016-06-13] MEDS: SOD CHLORIDE 0.9% 1,000 ML IV SCH ×2 (14:30→18:03)
--- NOTE | 2016-06-13 15:55 | PN ---
DATE: 06/13/2016 SUBJECTIVE: No acute changes. The patient is alert, looks comfortable. Dr. Aguilar is at bedside. WBC today 5.9, no shift, no bands. BUN 9, creatinine 0.56. ANTIMICROBIALS: 1. Vancomycin. 2. Zosyn. INDWELLINGS: PICC line. OBJECTIVE: GENERAL: This is a well-nourished, well-developed elderly man who is alert, in no distress. HEENT: Head atraumatic, normocephalic. Sclerae anicteric. Buccal mucosa pink. NECK: Supple, trachea midline. CHEST: Rise symmetrical. Breath sounds clear, diminished to bases. HEART: S1, S2. ABDOMEN: Soft, bowel tones present. EXTREMITIES: Without cyanosis. SKIN: With edema of the suprapubic area and left scotoma ASSESSMENT: 1. Scrotal cellulitis, edema, questionable abscess versus seroma. 2. Status post left inguinal hernia repair. 3. Systemic inflammatory response syndrome. 4. Anemia. PLAN: The patient remains stable, overall improving. Continue present care, antibiotics, scrotal e levation, and follow surgical recommendations. So far, no need for any surgical intervention. Dictated By: VIRGILIO WINSTON [employer] INSTRUCTOR for RICARDO TRUONG/[place] Conf#: [id number] DID#: [id number]
[2016-06-13] MEDS: METHADONE 10 MG TAB PO SCH ×2 (17:41→22:50)
[2016-06-13 20:21] VITALS: BP 131/70; RESP 20
[2016-06-13] MEDS: VANCOMYCIN 1.5 GM in SOD CHLORIDE 0.9% 250 ML IVPB SCH (20:56)
[2016-06-14] MEDS: SOD CHLORIDE 0.9% 1,000 ML IV SCH ×2 (03:50→13:38)
[2016-06-14] MEDS: METHADONE 10 MG TAB PO SCH ×5 (04:21→21:44)
[2016-06-14 05:39] LABS: BASOPHILS % 0.7 % (0.0-2.0); EOSINOPHILS # 0.5 10^3/ul (0.0-0.5); EOSINOPHILS % 8.3 % (0.0-7.0); HEMATOCRIT 36.1 % (42.0-52.0); HEMOGLOBIN 12.4 g/dl (14.0-18.0); LYMPHOCYTES # 1.4 10^3/ul (0.8-2.9); LYMPHOCYTES % 21.8 % (15.0-51.0); MEAN CORPUSCULAR HEMOGLOBIN 29.6 pg (29.0-33.0); MEAN CORPUSCULAR HGB CONC 34.5 g/dl (32.0-37.0); MEAN CORPUSCULAR VOLUME 85.9 fl (82.0-101.0); MEAN PLATELET VOLUME 8.1 fl (7.4-10.4); NEUTROPHIL # 3.5 10^3/ul (1.6-7.5); NEUTROPHILS % 54.2 % (39.0-77.0); PLATELET COUNT 135 10^3/UL (140-440); RED BLOOD COUNT 4.21 10^6/ul (4.70-6.10); RED CELL DISTRIBUTION WIDTH 13.2 % (11.5-14.5); UNCORRECTED WBC 6.5 10^3/ul (4.8-10.8); WHITE BLOOD COUNT 6.5 10^3/ul (4.8-10.8)
[2016-06-14 06:02] LABS: POTASSIUM 3.9 mmol/L (3.5-5.1)
[2016-06-14 06:04] LABS: CREATININE 0.52 mg/dl (0.61-1.24)
[2016-06-14] MEDS: PIPER-TAZO 3.375 GM IV (PMX) 100 ML IVPB SCH ×3 (06:04→21:35)
[2016-06-14 06:05] LABS: CALCIUM 8.3 mg/dl (8.4-10.2)
[2016-06-14 06:34] LABS: CONDITION 1
--- NOTE | 2016-06-14 06:38 | CONS ---
DATE OF ADMISSION: 06/11/2016 DATE OF CONSULTATION: 06/13/2016 PAIN MANAGEMENT CONSULTATION HISTORY OF PRESENT ILLNESS: This is a 66-year-old gentleman who was admitted to [facility] with a scrotal infection/abscess. On 06/07/2016, he had a left inguinal hernia repair at that time. Went home, required readmission at this time for scrotal abscess. He has been on aggres sive broad-spectrum IV antibiotic coverage. Insofar as pain management control and issues, this gen tleman states that he has been on oxycodone up to 15 tablets a day for unknown reasons. However, he states he has had a hernia for at least 3 years. On closer questioning, this gentleman uses heroin daily, always 4 times a day and has frequently used approximately 2 to 3 days ago. He has a histor y of hepatitis C and has been seen [place] liver specialist [place] who does not know that he still uses. Additionally, he still drinks, although he states he drinks only infrequently. He has a hist ory once again of hepatitis C, although he is still waiting to be on specific medications for hepati tis C, stating he is trying to get approval from [employer]. More questioning, he still smokes approxi mately 3 cigarettes a day. He denies use of any other street drugs, but it has been difficult to el icit all the information from him and to constant reinforcement that we will not circuit judge him. MEDICATIONS: Please refer to reconciliation sheets. ALLERGIES: SULFA DRUGS. MAJOR MEDICAL PROBLEMS IN THE PAST: Unremarkable. SOCIAL HISTORY: As per history of present illness. FAMILY HISTORY: Mother history of alcoholism. Father no history of significant drug use. He has o ne sibling brother who does not use any types of drugs also. REVIEW OF SYSTEMS: A 12-point review of systems are unremarkable other than which is per history of present illness. PHYSICAL EXAMINATION: GENERAL: Shows a well-nourished, well-developed gentleman. VITAL SIGNS: Blood pressure 137/77, pulse is 67 and regular, respirations 19, temperature 99.2 degr ees, 98% saturation on room air. HEENT: He is normocephalic and atraumatic. Anicteric and acyanotic on examination. CHEST: Inspiratory and expiratory rhonchi. COR: Regular rate, regular rhythm. ABDOMEN: Grossly benign, soft. Inspection of groin regions shows surgical scars with intact staple s approximately 9 fingerbreadths vertically and approximately 7 cm above his scrotum. He has grossl y edematous scrotum with ecchymotic scrotum. An intact drain is in his left lower quadrant. There is no streaking. Moderate erythema is noted. LABORATORY TESTS: White blood cell count today is 5.9, hemoglobin of 12.0, hematocrit of 35.1, MCV of 86.4, platelet count of 137,000. Chemistries: Serum sodium 141, potassium 3.9, chloride 105, ca rbon dioxide 26, BUN 9, creatinine 0.56. Total bilirubin at 0.4, indirect 0.4, alkaline phosph atase 40, ALT 52, alkaline phosphatase 80. Lipase 34. ASSESSMENT AND PLAN: This gentleman has a scrotal abscess and is receiving broad-spectrum IV antibi otic coverage. He is HIV negative, states that the last time he was checked approximately 9 months ago. I will consult with patient's primary to consider rechecking that once again, although he regino coppola states he does not and has never shared needles. The patient still uses heroin and although h is last use was approximately 2 days ago, significant increased chance that he will start withdrawin g. Therefore, we will start him off on methadone, leave him on oxycodone, stop any other opioids. Whether or not the patient's liver serologies will be checked as per Dr. Edilma Diehl. Suggest pre cautions. Dictated By: JEAN CLAUDE VICTORIA MD, LP/VALENCIA Conf#: [id number] DID#: [id number]
[2016-06-14 07:46] VITALS: BP 140/72; RESP 17
[2016-06-14 08:16] VITALS: BP 128/73; RESP 18
[2016-06-14] MEDS: VANCOMYCIN 1.5 GM in SOD CHLORIDE 0.9% 250 ML IVPB SCH ×2 (09:09→18:47)
[2016-06-14] MEDS: HEPARIN 5,000 UNIT/0.5 ML SYG SC SCH ×2 (09:17→21:35)
--- NOTE | 2016-06-14 09:50 | PN ---
Date/Time of Note Date/Time of Note DATE: 06/14/16 TIME: 09:03 Assessment/Plan VTE Prophylaxis VTE Prophylaxis Intervention: SCD's Lines/Catheters IV Catheter Type (from Nrsg): PICC Line Central line still needed: Yes Urinary Cath still in place: No Assessment/Plan Assessment/Plan 66 yo male with a past medical history of essential hypertension, who was was here on 06/07/2016 for an left inguinal hernia repair, now complaining of scrotal pain and swelling. 1. L Scrotal abscess versus fluid collection post - operative - Surgery choosing to manage conservatively/ continue empiric abx / pain control / leave drain in place for now / supportive care 2. Essential hypertension - Control is suboptimal / start HCTZ 3. Tobacco abuse Tobacco cessation counselling done and will continue to be reinforced throughout hospitalization. 4. Substance abuse Appreciate pain mgt input and recommendations GI ppx - pepcid po DVT ppx - heparin Subjective 24 Hr Interval Summary Free Text/Dictation Patient seen and examined. no new issues we discussed care plan Exam/Review of Systems Vital Signs Vitals Vital Signs Date Time Temp Pulse Resp B/P Pulse Ox O2 Delivery O2 Flow Rate FiO2 06/14/16 08:16 98.0 77 18 128/73 92 06/11/16 20:08 Room Air Intake and Output 06/13/16 06/13/16 06/14/16 15:00 23:00 07:00 Intake Total 1630 ml 1708 ml Output Total 3 ml Balance 1630 ml 1705 ml Exam Constitutional: alert, oriented Psych: anxiety Head: atraumatic, normocephalic Eyes: PERRL Neck: supple Respiratory: clear to auscultation, normal air movement Cardiovascular: nl pulses, regular rate and rhythm Gastrointestinal: bowel sounds, non-tender, soft Genitourinary - Male: other (Scrotal edema , erythema and tenderness slightly improved), No nl penis, No nl scrotum Extremities: No edema Neurological: nl mental status, nl speech, nl strength Skin: No rash or lesions Results Result Diagram: 06/14/16 0415 06/14/16 0415 Results 24 hrs Laboratory Tests Test 06/13/16 09:20 06/14/16 04:15 Vancomycin Level Trough 8.0 L Anion Gap 13 Basophils # 0.0 Basophils % 0.7 Blood Urea Nitrogen 8 Calcium Level 8.3 L Carbon Dioxide Level 28 Chloride Level 103 Creatinine 0.52 L Eosinophils # 0.5 Eosinophils % 8.3 H Glucose Level 92 Hematocrit 36.1 L Hemoglobin 12.4 L Lymphocytes # 1.4 Lymphocytes % 21.8 Mean Corpuscular Hemoglobin 29.6 Mean Corpuscular Hemoglobin Concent 34.5 Mean Corpuscular Volume 85.9 Mean Platelet Volume 8.1 Monocytes # 1.0 H Monocytes % 15.0 H Neutrophils # 3.5 Neutrophils % 54.2 Nucleated Red Blood Cells # 0.0 Nucleated Red Blood Cells % 0.0 Platelet Count 135 L Potassium Level 3.9 Red Blood Count 4.21 L Red Cell Distribution Width 13.2 Sodium Level 140 White Blood Count 6.5 Medications Medications Current Medications IV Flush 10 ml 10 ml PRN PRN IV IV PROTOCOL; Start 06/11/16 at 17:30 Piperacillin Sod/ Tazobactam Sod (Zosyn 3.375gm/ 100 ml (Pmx)) 100 ml @ 200 mls /hr Q8 IVPB Last administered on 06/14/16 06:04; Admin Dose 200 MLS/HR; Start 06/11/16 at 22:00 Ondansetron HCl (Zofran Inj) 4 mg Q6H PRN IV NAUSEA AND/OR VOMITING; Start at 19:30 Heparin Sodium (Porcine) 5000 unit 5,000 unit BID SC Last administered on 20:52; Admin Dose 5,000 UNIT; Start 06/11/16 at 21:00 Sodium Chloride 1,000 ml @ 75 mls/hr [id number] IV Last administered on 18:03; Admin Dose 75 MLS/HR; Start 06/11/16 at 22:30 Vancomycin HCl/ Sodium Chloride (Vancocin/NS) 250 ml @ 83.333 mls/ hr Q12H IVPB Last administered on 06/13/16 20:56; Admin Dose 83.333 MLS/HR; Start at 19:00 Acetaminophen/ Hydrocodone Bitart ([place] (5/325)) 1 tab Q6H PRN PO breakthrough pain Last administered on 06/13/16 17:47; Admin Dose 1 TAB; Start 06/13/16 at 13:00 Methadone HCl (Methadone) 10 mg Q6H PO Last administered on 1/26/17at 04:21; Admin Dose 10 MG; Start 06/13/16 at 16:00 Miscellaneous Information (*Rx Drug Level Order Reminder*) VANCO TROUGH @ 0, 600 ON... ONCE ONCE XX ; Start 06/15/16 at 06:00; Stop 06/15/16 at 06:01 GARRISON EDGE Jun 14, 2016 09:13
[2016-06-14 12:54] VITALS: BP 111/74
--- NOTE | 2016-06-14 13:22 | CONS ---
Date/Time of Note Date/Time of Note DATE: 06/14/16 TIME: 13:20 Assessment/Plan Assessment/Plan Chief Complaint/Hosp Course SUBJECTIVE: The patient is alert, ambulating, feels better, looks comfortable. ANTIMICROBIALS: 1. Vancomycin. 2. Zosyn. INDWELLINGS: PICC line, MYNOR. OBJECTIVE: GENERAL: This is a well-nourished, well-developed elderly man who is alert, in no distress. HEENT: Head atraumatic, normocephalic. Sclerae anicteric. Buccal mucosa pink. NECK: Supple, trachea midline. CHEST: Rise symmetrical. Breath sounds clear, diminished to bases. HEART: S1, S2. ABDOMEN: Soft, bowel tones present. EXTREMITIES: Without cyanosis. SKIN: With edema of the suprapubic area and left scotoma ASSESSMENT: 1. Scrotal cellulitis, edema, questionable abscess versus seroma. 2. Status post left inguinal hernia repair. 3. Systemic inflammatory response syndrome. 4. Anemia. PLAN: The patient is improving. Continue present care, antibiotics, scrotal elevation, follow surgical recommendations. DW pt Problems: Consultation Date/Type/Reason Admit Date/Time Jun 11, 2016 at 17:31 Initial Consult Date Type of Consultation: ID Exam/Review of Systems Vital Signs Vitals Vital Signs Date Time Temp Pulse Resp B/P Pulse Ox O2 Delivery O2 Flow Rate FiO2 06/14/16 12:54 79 111/74 06/14/16 08:16 98.0 18 92 06/11/16 20:08 Room Air Intake and Output 06/13/16 06/13/16 06/14/16 15:00 23:00 07:00 Intake Total 1630 ml 1708 ml Output Total 3 ml Balance 1630 ml 1705 ml Results Result Diagram: 06/14/16 0415 06/14/16 0415 Results 24 hrs Laboratory Tests Test 06/14/16 04:15 Anion Gap 13 Basophils # 0.0 Basophils % 0.7 Blood Urea Nitrogen 8 Calcium Level 8.3 L Carbon Dioxide Level 28 Chloride Level 103 Creatinine 0.52 L Eosinophils # 0.5 Eosinophils % 8.3 H Glucose Level 92 Hematocrit 36.1 L Hemoglobin 12.4 L Lymphocytes # 1.4 Lymphocytes % 21.8 Mean Corpuscular Hemoglobin 29.6 Mean Corpuscular Hemoglobin Concent 34.5 Mean Corpuscular Volume 85.9 Mean Platelet Volume 8.1 Monocytes # 1.0 H Monocytes % 15.0 H Neutrophils # 3.5 Neutrophils % 54.2 Nucleated Red Blood Cells # 0.0 Nucleated Red Blood Cells % 0.0 Platelet Count 135 L Potassium Level 3.9 Red Blood Count 4.21 L Red Cell Distribution Width 13.2 Sodium Level 140 White Blood Count 6.5 Medications Medications Current Medications IV Flush 10 ml 10 ml PRN PRN IV IV PROTOCOL; Start 06/11/16 at 17:30 Piperacillin Sod/ Tazobactam Sod (Zosyn 3.375gm/ 100 ml (Pmx)) 100 ml @ 200 mls /hr Q8 IVPB Last administered on 06/14/16 06:04; Admin Dose 200 MLS/HR; Start 06/11/16 at 22:00 Ondansetron HCl (Zofran Inj) 4 mg Q6H PRN IV NAUSEA AND/OR VOMITING; Start at 19:30 Heparin Sodium (Porcine) 5000 unit 5,000 unit BID SC Last administered on 09:17; Admin Dose 5,000 UNIT; Start 06/11/16 at 21:00 Sodium Chloride 1,000 ml @ 75 mls/hr [id number] IV Last administered on 18:03; Admin Dose 75 MLS/HR; Start 06/11/16 at 22:30 Vancomycin HCl/ Sodium Chloride (Vancocin/NS) 250 ml @ 83.333 mls/ hr Q12H IVPB Last administered on 06/14/16 09:09; Admin Dose 83.333 MLS/HR; Start at 19:00 Acetaminophen/ Hydrocodone Bitart ([place] (5/325)) 1 tab Q6H PRN PO breakthrough pain Last administered on 06/13/16 17:47; Admin Dose 1 TAB; Start 06/13/16 at 13:00 Methadone HCl (Methadone) 10 mg Q6H PO Last administered on 06/14/16 04:21; Admin Dose 10 MG; Start 06/13/16 at 16:00 Miscellaneous Information (*Rx Drug Level Order Reminder*) VANCO TROUGH @ 0, 600 ON... ONCE ONCE XX ; Start 06/15/16 at 06:00; Stop 06/15/16 at 06:01 Hydrochlorothiazide (Hydrochlorothiazide) 25 mg DAILY PO ; Start 06/14/16 at 12: 30 VIRGILIO WINSTON NP Jun 14, 2016 13:22
[2016-06-14] MEDS: HYDROCHLOROTHIAZIDE 25 MG TAB PO SCH (13:39)
--- NOTE | 2016-06-14 14:10 | PN ---
DATE: 06/14/2016 SUBJECTIVE: The patient states that he feels much better. No other complaints. OBJECTIVE: VITAL SIGNS: Temperature 98, heart rate 79, BP 111/74, respirations 18, saturation 97% on room air. GENITOURINARY: The swelling, redness and erythema of the scrotum has decreased comparing to yesterd ay. The swelling may be totally, compared to the admission time, decreased by about 30% to 35%. LABORATORY DATA: WBC today is 6500, it is 54% segmented. There is no shift to the left. ASSESSMENT AND PLAN: The patient with status post left scrotal hernia repair with presence of the b owel in the left scrotum before operation. Now, I do not think the patient has an abscess, but appe ars to have inflammation and swelling of the scrotum and also probably testicle. The patient is on antibiotic, which I agree with that. No leukocytosis. The patient is responding to treatment of re st, elevation of the scrotum and antibiotics. From a surgical point of view, we can suggest that the patient stay 1 more day on IV antibiotics and elevation and then probably can go home tomorrow if it is okay with the other consultants. He woul d follow with Dr. Madden in the office. Dictated By: HARLEY YU/VALENCIA Conf#: [id number] DID#: [id number]
[2016-06-14 22:05] VITALS: BP 116/71; RESP 20
[2016-06-15] MEDS: METHADONE 10 MG TAB PO SCH ×3 (04:00→15:50)
[2016-06-15] MEDS: PIPER-TAZO 3.375 GM IV (PMX) 100 ML IVPB SCH ×2 (05:49→14:08)
[2016-06-15] MEDS: VANCOMYCIN 1.5 GM in SOD CHLORIDE 0.9% 250 ML IVPB SCH (06:50)
[2016-06-15] MEDS: SOD CHLORIDE 0.9% 1,000 ML IV SCH (06:50)
[2016-06-15 07:52] VITALS: BP 128/60; RESP 18
[2016-06-15] MEDS: HYDROCHLOROTHIAZIDE 25 MG TAB PO SCH (09:00)
[2016-06-15] MEDS: HEPARIN 5,000 UNIT/0.5 ML SYG SC SCH (09:46)
[2016-06-15] MEDS ORDERED: HYDR-3498 PO (10:30)
[2016-06-15] MEDS ORDERED: HYD25 PO (10:30)
--- NOTE | 2016-06-15 10:37 | PDOCDIS ---
Discharge Instructions DIAGNOSIS Discharge Diagnosis: Post Op Scrotal abscess CONDITION Patient Condition: Stable HOME CARE INSTRUCTIONS: Diet Instructions: Low Fat /Cholesterol ACTIVITY: Activity Restrictions: Slowly Increase Activity Rest between Activity Activity Restrictions Comment: Scrotal elevation OTHER ORDERS: Other Orders: * Please ensure you keep your scrotum elevated for most of the day until told otherwise by Dr Madden * Please Stop using heroine. You have been given resources to help you with this . Please use them and let us know if you have any questions before you leave * Followup with your primary doctor within the next 1-2 weeks. * If you don't have one please let someone know, we can give you resources that may help you pick one. You may also call your insurance company to assign one to you. * Review your medication list with your nurse before leaving and if you need new prescriptions please let your nurse know. * I may have made changes to your home medications or given you new prescriptions, please let your primary doctor know as well. Stay compliant with your medications and report any side effects to your PCP or pharmacist. Return to the ER if you have any concerns and cannot reach your doctors or call your insurance company, they usually have a nurse that can help you. GARRISON EDGE Jun 15, 2016 10:37
[2016-06-15] MEDS ORDERED: LACTINEX PO (10:46)
[2016-06-15] MEDS ORDERED: LEVO500T72 PO (10:46)
[2016-06-15] MEDS ORDERED: DOXY100T20 PO (10:46)
--- NOTE | 2016-06-15 11:39 | CONS ---
Date/Time of Note Date/Time of Note DATE: 06/15/16 TIME: 11:36 Assessment/Plan Assessment/Plan Chief Complaint/Hosp Course SUBJECTIVE: The patient is alert, feels better, looks comfortable, swelling decreased. ANTIMICROBIALS: 1. Vancomycin. 2. Zosyn. INDWELLINGS: PICC line, MYNOR. OBJECTIVE: GENERAL: This is a well-nourished, well-developed elderly man who is alert, in no distress. HEENT: Head atraumatic, normocephalic. Sclerae anicteric. Buccal mucosa pink. NECK: Supple, trachea midline. CHEST: Rise symmetrical. Breath sounds clear, diminished to bases. HEART: S1, S2. ABDOMEN: Soft, bowel tones present. EXTREMITIES: Without cyanosis. SKIN: With decreased edema of the suprapubic area and left scrotum ASSESSMENT: 1. Scrotal cellulitis==> improving. 2. Status post left inguinal hernia repair. 3. Systemic inflammatory response syndrome. 4. Anemia. 5. ALL: Sulfa PLAN: The patient is improving. Cleared by surgery for discharge, recommend to send home on PO Doxycycline and Levaquin for 7 more days, f/u with surgery outpatient for further rec-s, may see DR Foley at the office prn QUENTIN pt QUENTIN Diehl Problems: Consultation Date/Type/Reason Admit Date/Time Jun 11, 2016 at 17:31 Type of Consultation: ID Exam/Review of Systems Vital Signs Vitals Vital Signs Date Time Temp Pulse Resp B/P Pulse Ox O2 Delivery O2 Flow Rate FiO2 06/15/16 07:52 97.8 65 18 128/60 96 06/11/16 20:08 Room Air Intake and Output 06/14/16 06/14/16 06/15/16 15:00 23:00 07:00 Intake Total 350 ml 2150 ml 1238 ml Balance 350 ml 2150 ml 1238 ml Results Result Diagram: 06/14/16 0415 06/14/16 0415 Results 24 hrs Laboratory Tests Test 06/15/16 05:45 Vancomycin Level Trough 11.0 Medications Medications Current Medications IV Flush 10 ml 10 ml PRN PRN IV IV PROTOCOL; Start 06/11/16 at 17:30 Piperacillin Sod/ Tazobactam Sod (Zosyn 3.375gm/ 100 ml (Pmx)) 100 ml @ 200 mls /hr Q8 IVPB Last administered on 06/15/16 05:49; Admin Dose 200 MLS/HR; Start 06/11/16 at 22:00 Ondansetron HCl (Zofran Inj) 4 mg Q6H PRN IV NAUSEA AND/OR VOMITING; Start at 19:30 Heparin Sodium (Porcine) 5000 unit 5,000 unit BID SC Last administered on 09:46; Admin Dose 5,000 UNIT; Start 06/11/16 at 21:00 Sodium Chloride 1,000 ml @ 75 mls/hr [id number] IV Last administered on 06:50; Admin Dose 75 MLS/HR; Start 06/11/16 at 22:30 Vancomycin HCl/ Sodium Chloride (Vancocin/NS) 250 ml @ 83.333 mls/ hr Q12H IVPB Last administered on 06/15/16 06:50; Admin Dose 83.333 MLS/HR; Start at 19:00 Acetaminophen/ Hydrocodone Bitart ([place] (5/325)) 1 tab Q6H PRN PO breakthrough pain Last administered on 06/13/16 17:47; Admin Dose 1 TAB; Start 06/13/16 at 13:00 Methadone HCl (Methadone) 10 mg Q6H PO Last administered on 06/15/16 09:44; Admin Dose 10 MG; Start 06/13/16 at 16:00 Hydrochlorothiazide (Hydrochlorothiazide) 25 mg DAILY PO Last administered on 13:39; Admin Dose 25 MG; Start 06/14/16 at 12:30 VIRGILIO WINSTON NP Jun 15, 2016 11:39
--- NOTE | 2016-06-15 14:02 | PN ---
DATE: 06/15/2016 SUBJECTIVE: The patient feels much better. OBJECTIVE: VITAL SIGNS: 97.8, 65, 18, 128/60, 96% saturation on room air. GENITOURINARY: External genitalia, the scrotal swelling to some degree has decreased and pain is less. It is soft and slightly tense, the scrotum has decreased. One can move it back and forth and up and down easily, but it is still quite swollen and elongated. ASSESSMENT: Status post left scrotal hernia repair, with postoperative swelling and edema of the scrotum and vesicle probably, and possible orchitis. PLAN: 1. Continue elevation of the scrotum as much as possible when he goes home. 2. Give antibiotics p.o. by infectious disease. 3. Discharge the patient home, to be followed by Dr. Madden. 4. Ad-Burns drain should be removed in the office by Dr. Madden. Dictated By: HARLEY YU/VALENCIA Conf#: [id number] DID#: [id number] MTDD
--- NOTE | 2016-06-16 12:12 | DS ---
DATE OF ADMISSION: 06/11/2016 DATE OF DISCHARGE: 06/15/2016 PRESENTING COMPLAINT: Scrotal swelling and pain. ADMISSION DIAGNOSES: 1. Postoperative epidural abscess. 2. Hypertension. CONSULTS ON THE CASE: Dr. Madden and Dr. Aguilar for surgery and Dr. Venu Foley for Infectious Di sease. INTERVENTIONS: 1. He had a PICC line inserted and he also had a CT of the abdomen and pelvis that showed a concern for abscess in superior portion of left scrotum measuring 5 x 3 x 5 cm. 2. Status post recent left inguinal hernia repair and ____. . HOSPITAL COURSE: Full details are available in chart for review. In summary, this is a 66-year-old male who had a left inguinal hernia repair for a few days prior to presentation and came back 4 day s after, referred by his surgeon because of scrotal swelling and pain, was found to have concern for abscess on CT. He was admitted and placed on aggressive antibiotics. ID was consulted. He also w as seen by surgery. Based on review of his labs and his clinical condition, surgery determined that he probably has an abscess ____ fluid collection. We recommended that he continue the antibiotics. We also recommended scrotal elevation and supportive care. These were all instituted and the patient responded well to these modalities. However, upon further questioning, the patient was found to have a history of heroin use and hepatitis C as well as a history of narcotic abuse and for those reasons, pain manage ment consult was obtained. Dr. Fraser saw the patient and put him on methadone in house to preven t withdrawal, and he responded well and was controlling his pain while in house. At this time, he has done much better. His scrotal swelling is much improved. His pain is much less, and has been c leared by surgery to be discharged with his drain remaining in place for outpatient followup on oral antibiotics. FINAL DIAGNOSES 1. Scrotal cellulitis and swelling, improved. 2. Aspirate of fluid collection. Abscess ruled out. 3. Hypertension, uncontrolled. 4. Postoperative left inguinal hernia repair, stable. 5. Hepatitis C, history of. 6. Heroin abuse. 7. Chronic anemia. 8. Narcotic dependence. DISPOSITION: To home. ACTIVITIES: As tolerated. Encouraged to continue to keep his scrotum elevated until cleared by mendel vargas. DISCHARGE MEDICATIONS: For a complete list of discharge medications, please review discharge medica tion list. He is to complete a 10-day course of antibiotics at home. FOLLOWUP: Will be with Dr. Madden in a week and his primary care physician as well within 1 week. DIET: Low cholesterol, low fat. Dictated By: GARRISON EDGE MD BA/NTS Conf#: [id number] DID#: [id number]
== END 2016-06-15 16:20 | disposition home or self-care (01) | DRG 728 ==
LOC: E/R 11:02 → MS1 17:31
PROVIDERS: ADMIT Family Medicine; ATTEND Family Medicine
PROC: 02HV33Z Insertion of Infusion Device into Superior Vena Cava, Percutaneous Approach (ICD-10-PCS; principal; 2016-06-11)
DX: N49.2 Inflammatory disorders of scrotum (principal); R65.10 Systemic inflammatory response syndrome (SIRS) of non-infectious origin without acute organ dysfunction; N50.89 Other specified disorders of the male genital organs; I10 Essential (primary) hypertension; F17.210 Nicotine dependence, cigarettes, uncomplicated; J44.9 Chronic obstructive pulmonary disease, unspecified; D64.9 Anemia, unspecified; B18.2 Chronic viral hepatitis C; F11.10 Opioid abuse, uncomplicated; Z88.2 Allergy status to sulfonamides
CPT/HCPCS: 36415; 36569; 71010; 74177; 76937; 80048; 80053; 80202; 81003; 83690; 83735; 85025; 85610; 85730; 96372; 96374; C1769; J2270; J2543; J3370; J7030; J7050; Q9967

== ENCOUNTER 2016-07-23 06:50 | Inpatient (IN) | payer OTHER ==
[2016-07-20 16:57] VITALS: BMI 25.8
[2016-07-23] VITALS (20 sets, daily range): BP systolic 118–167; BP diastolic 65–105; PULSE 64–88; RESP 13–23; Ht 180.3 cm; Wt 86.0 kg
[~2016-07-23] VITALS: Ht 180.3 cm; Wt 86.0 kg
[~2016-07-23 06:50] MED LIST changes: +BUPIVACAINE 0.5%/EPI (SDV) 30 ML INJ INJ ONE; -CEFAZOLIN 1 GM INJ ONE; +DOXY100T20 PO; -GLYCOPYRROLATE 0.4 MG INJ ONE; +HYD25 PO; +HYDR-3498 PO; +LACTINEX PO; +LEVO500T72 PO; -LIDOCAINE 2% (SDV) 5 ML INJ ONE; -METH10TA2 PO; -METO50TA16 PO; -NEOSTIGMINE 3 MG/3 ML SYRINGE ONE; -PRED20TA PO; -PROPOFOL 200 MG INJ ONE; -ROCURONIUM 50 MG INJ ONE; -SUCCINYLCHOLINE CHLORIDE 100 MG/5 ML SYG IV ONE
[2016-07-23] MEDS ORDERED: SOD CHLORIDE 0.9% 1,000 ML IV ONE (07:00)
[2016-07-23] MEDS ORDERED: CEFAZOLIN 2 GM/50 ML (PMX) 50 ML IVPB ONE (07:00)
[2016-07-23 08:38] LABS: ADD SCAN DIFF NO
[2016-07-23 08:42] LABS: BASOPHILS % 0.1 % (0.0-2.0); EOSINOPHILS % 0.1 % (0.0-7.0); HEMATOCRIT 39.5 % (42.0-52.0); HEMOGLOBIN 13.4 g/dl (14.0-18.0); LYMPHOCYTES # 1.5 10^3/ul (0.8-2.9); LYMPHOCYTES % 20.8 % (15.0-51.0); MEAN CORPUSCULAR HEMOGLOBIN 29.1 pg (29.0-33.0); MEAN CORPUSCULAR HGB CONC 33.9 g/dl (32.0-37.0); MEAN CORPUSCULAR VOLUME 85.7 fl (82.0-101.0); MEAN PLATELET VOLUME 10.4 fl (7.4-10.4); MONOCYTE # 0.9 10^3/ul (0.3-0.9); MONOCYTES % 12.4 % (0.0-11.0); NEUTROPHIL # 4.9 10^3/ul (1.6-7.5); NEUTROPHILS % 66.3 % (39.0-77.0); PLATELET COUNT 112 10^3/UL (140-415); RED BLOOD COUNT 4.61 10^6/ul (4.70-6.10); RED CELL DISTRIBUTION WIDTH 13.2 % (11.5-14.5); WHITE BLOOD COUNT 7.4 10^3/ul (4.8-10.8)
[2016-07-23 09:04] LABS: INR 0.92; PROTIME 12.4 Sec (12.2-14.2)
[2016-07-23 09:05] LABS: PARTIAL THROMBOPLASTIN TIME 33.1 Sec (25.0-35.0)
[2016-07-23 09:25] LABS: CALCIUM 9.1 mg/dl (8.4-10.2); CREATININE 0.48 mg/dl (0.61-1.24); POTASSIUM 4.2 mmol/L (3.5-5.1)
[2016-07-23] MEDS ORDERED: BUPIVACAINE 0.5%/EPI (SDV) 30 ML INJ ONE (09:39)
[2016-07-23] MEDS ORDERED: PROVENTIL HFA 6.7GM INHALER ONE (09:46)
[2016-07-23] MEDS ORDERED: FENTAnyl 50 MCG/ML VIAL ONE ×2 (09:46→11:22)
[2016-07-23] MEDS ORDERED: PROPOFOL 40 ML ONE (10:18)
[2016-07-23] MEDS ORDERED: CEFAZOLIN 1 GM INJ ONE (10:18)
[2016-07-23] MEDS ORDERED: SUCCINYLCHOLINE CHLORIDE 100 MG/5 ML SYG IV ONE (10:18)
[2016-07-23] MEDS ORDERED: GLYCOPYRROLATE 0.4 MG INJ ONE (10:18)
[2016-07-23] MEDS ORDERED: ROCURONIUM 50 MG INJ ONE (10:18)
[2016-07-23] MEDS ORDERED: LIDOCAINE 2% (SDV) 5 ML INJ ONE (10:18)
[2016-07-23] MEDS ORDERED: NEOSTIGMINE 3 MG/3 ML SYRINGE ONE (10:18)
[2016-07-23] MEDS ORDERED: ONDANSETRON 4 MG INJ IV PRN ×2 (10:30→12:30)
[2016-07-23] MEDS ORDERED: FENTAnyl 50 MCG/ML VIAL IV PRN (10:30)
[2016-07-23] MEDS ORDERED: HYDROmorphONE (0.2 MG/ML) 10ML SYG IV PRN ×3 (10:30)
[2016-07-23] MEDS ORDERED: OXYCODONE/ACETAMINOPHEN (5/325) TAB PO PRN (10:30)
[2016-07-23] MEDS ORDERED: MEPERIDINE 25 MG INJ IV PRN (10:30)
[2016-07-23] MEDS ORDERED: LABETALOL HCL 20MG INJ IV PRN (10:30)
[2016-07-23] MEDS ORDERED: hydrALAzine 20 MG INJ IV PRN ×2 (10:30→15:00)
[2016-07-23] MEDS ORDERED: DIPHENHYDRAMINE 50 MG INJ IV PRN (10:30)
[2016-07-23] MEDS ORDERED: ALBUTEROL 0.5% (NEB) 2.5 MG/0.5 ML AMP INH ONE (10:30)
[2016-07-23] MEDS ORDERED: CLINDAMYCIN 900 MG/D5W (PMX) 50 ML IVPB ONE (11:18)
[2016-07-23] MEDS ORDERED: morphine 2 MG INJ IV PRN (12:30)
[2016-07-23] MEDS: FENTAnyl 50 MCG/ML VIAL IV PRN ×3 (12:32→13:12)
--- NOTE | 2016-07-23 13:17 | OPR ---
DATE OF OPERATION: 07/23/2016 PREOPERATIVE DIAGNOSIS: Large recurrent left inguinal hernia. POSTOPERATIVE DIAGNOSIS: Large recurrent left inguinal hernia. OPERATION PERFORMED: Left inguinal herniorrhaphy with mesh, hydrocele repair. ANESTHESIA: General. ANESTHESIOLOGIST: Gene Leblanc MD SURGEON: Amador Madden MD ART APPRAISER: None. INDICATIONS FOR PROCEDURE: Patient is a 66-year-old male who presented with an extremely large ingu inal hernia previously underwent surgical repair but developed recurrence. He was counseled as to n eed for surgery and mesh repair. He consented and was scheduled for surgery. DESCRIPTION OF PROCEDURE: The patient was brought to the operating theater, placed under general an esthesia. The left groin was shaved, prepped and draped in the usual sterile fashion. Previous mendel gical incisional scar was reincised with 15 blade scalpel. Subcutaneous tissue was dissected with c autery. A very large hernia sac was easily identified. The aponeurosis of the external oblique mus culature was atrophic. The sac was elevated along with the cord structures off the pubic tubercle. The sac was opened and portions of it were dissected off the cord and resected. There also appeared to be a large hydrocele within the scrotum. The hydrocele capsule was incised. Large amount of bl oody liquid was evacuated. Portions of the hydrocele wall were then debrided and removed. At this point, there was a very large defect. Dr. Madden dissected to identify the inguinal ligament lateral ly and abdominal wall fascia medially double-sided mesh plug with a ring was used to repair it. A s lot was cut to facilitate cord transgression. Portions of the mesh superiorly had to be placed in u nderlay fashion. The mesh was circumferential sewn to the inguinal ligament laterally with 0 Prolen e sutures and to the abdominal wall fascia medially. Additional sutures were used to reapproximate the slot which had been cut. At this point, the wound was irrigated. Minimal bleeding was controll ed with cautery. A #7 MYNOR drain was brought through the left side of the lower abdominal wall, cut t o size and laid over the mesh and secured in place with 2-0 nylon suture in standard fashion. Wound was irrigated with Betadine, and the skin was reapproximated with skin alxeis. Patient tolerated procedure well. Estimated blood loss was 30 mL. There were no complications and the patient was tr ansported in stable condition to the recovery room. Dictated By: AMADOR MAY/VALENCIA Conf#: [id number] DID#: [id number]
[2016-07-23] MEDS: D5W-0.45 NACL + KCL 20 MEQ 1,000 ML IV SCH ×2 (14:57→20:07)
[2016-07-23] MEDS: OXYCODONE/ACETAMINOPHEN (5/325) TAB PO PRN ×4 (16:40→23:56)
--- NOTE | 2016-07-23 17:20 | HP ---
DATE OF ADMISSION: 07/23/2016 HISTORY OF PRESENT ILLNESS: The patient is a 66-year-old gentleman with past history of recurrent l eft inguinal hernia, had multiple surgeries in the past. The patient presented with extremely large inguinal hernia and previously underwent surgical repair but developed recurrence. The patient als o with history of hepatitis C, liver cirrhosis, history of tobacco, alcohol and heroin IV drug use. The patient was brought to the hospital and underwent left inguinal herniorrhaphy with mesh and hyd rocele repair. Postoperatively the patient experienced some significant pain and was admitted for f urther evaluation and management to medical/surgical floor. PAST MEDICAL HISTORY: Positive for essential hypertension, hepatitis C with history of umbilical an d inguinal hernia and history of scrotal abscess, status post incision and drainage. PAST SURGICAL HISTORY: Per HPI. SOCIAL HISTORY: Patient is a former drinker, stated that he stopped drinking alcohol. Patient also a current every day smoker, smokes about a couple of cigarettes a day, smoked for many years. The patient also is IV heroin user; last time used a couple of days ago. FAMILY HISTORY: Noncontributory. ALLERGIES: THE PATIENT IS ALLERGIC TO SULFA ANTIBIOTICS. MEDICATIONS ON ADMISSION: [place] p.r.n. for pain. The patient stated that he used to take blood pre ssure medication, but his blood pressure has been stable since he stopped drinking alcohol and he do es not take any blood pressure medication currently. REVIEW OF SYSTEMS: A 12-point review of systems is negative unless what mentioned in the HPI. PHYSICAL ASSESSMENT: GENERAL: Well-developed, well-nourished male, currently is awake, alert. VITAL SIGNS: Temperature is 97.3, pulse is 66, blood pressure is 147/90, respiratory rate 16, oxyge n saturation 90% on room air. HEENT: Head is atraumatic, normocephalic. Pupils equal, round, reactive to light and accommodation . Oral mucosa is pink and moist. NECK: Supple, no cervical lymphadenopathy, no thyromegaly. CHEST: Lungs clear bilaterally. There is no rhonchi, wheezes, rales noted. CARDIOVASCULAR: Normal S1, S2. No murmurs, gallops, clicks, rubs noted. ABDOMEN: Round, soft, status post surgery with MYNOR drain. Bowel sounds are present. EXTREMITIES: There is no edema, clubbing, cyanosis. Pulses equal bilaterally 2+. SKIN: There is no rash, petechiae noted. NEUROLOGIC: Patient is awake, alert and oriented x4. No focal deficits noted. Motor strength 5/5 in all extremities. ASSESSMENT AND PLAN: 1. Large recurrent left inguinal hernia status post left inguinal herniorrhaphy with mesh and hydro miguel repair by Dr. Madden. We are going to continue the patient on IV fluids. Continue incentive sp irometer q.1 hour while patient is awake and advanced diet as patient tolerates. Continue Percocet and morphine p.r.n. for pain and Zofran p.r.n. for nausea. 2. Hypertension. Continue hydralazine p.r.n. for systolic blood pressure above 170. 3. History of hepatitis C. 4. Current heroin and tobacco user. We will continue IV fluids. CBC and BMP tomorrow. Sequential compression device for deep venous thrombosis prophylaxis and Pepcid for peptic ulcer disease proph ylaxis. Further recommendations based on clinical course. Plan of care discussed with Dr. Hooks . Dictated By: AFSHIN WHEELER [employer] CARE MUSIC THERAPIST for RACHEL HOOKS MD SR/NTS Conf#: [id number] DID#: [id number]
--- NOTE | 2016-07-23 17:58 | RADRPT ---
Vent Rate: 72 bpm RR Interval: 0 msec MS Interval: 176 msec QRS Duration: 90 msec QT Interval: 382 msec QTC Interval: 418 msec P-R-T [place]: 52 - 68 - 62 degrees Normal sinus rhythm Normal ECG Electronically Signed By: Anthony Holcomb [id number]
[2016-07-24] MEDS: morphine 10 MG INJ IM PRN ×4 (01:25→15:54)
[2016-07-24] MEDS: OXYCODONE/ACETAMINOPHEN (5/325) TAB PO PRN ×3 (03:44→20:03)
[2016-07-24 04:00] VITALS: BP 128/78; PULSE 75; RESP 18
[2016-07-24] MEDS: D5W-0.45 NACL + KCL 20 MEQ 1,000 ML IV SCH ×3 (04:07→20:07)
[2016-07-24 04:54] LABS: ADD SCAN DIFF NO
[2016-07-24 05:09] LABS: BASOPHILS % 0.3 % (0.0-2.0); EOSINOPHILS % 0.3 % (0.0-7.0); HEMATOCRIT 38.6 % (42.0-52.0); HEMOGLOBIN 12.9 g/dl (14.0-18.0); LYMPHOCYTES # 2.1 10^3/ul (0.8-2.9); LYMPHOCYTES % 23.3 % (15.0-51.0); MEAN CORPUSCULAR HEMOGLOBIN 28.7 pg (29.0-33.0); MEAN CORPUSCULAR HGB CONC 33.4 g/dl (32.0-37.0); MEAN PLATELET VOLUME 10.5 fl (7.4-10.4); MONOCYTE # 1.2 10^3/ul (0.3-0.9); MONOCYTES % 12.7 % (0.0-11.0); NEUTROPHIL # 5.8 10^3/ul (1.6-7.5); NEUTROPHILS % 63.1 % (39.0-77.0); PLATELET COUNT 108 10^3/UL (140-415); RED BLOOD COUNT 4.49 10^6/ul (4.70-6.10); RED CELL DISTRIBUTION WIDTH 13.3 % (11.5-14.5); WHITE BLOOD COUNT 9.1 10^3/ul (4.8-10.8)
[2016-07-24 05:25] LABS: POTASSIUM 4.1 mmol/L (3.5-5.1)
[2016-07-24 05:27] LABS: CREATININE 0.58 mg/dl (0.61-1.24)
[2016-07-24 05:28] LABS: CALCIUM 8.8 mg/dl (8.4-10.2)
[2016-07-24 12:31] VITALS: BP 132/79; RESP 18
[2016-07-24] MEDS ORDERED: MAGNESIUM HYDROXIDE 30ML CUP PO PRN (17:00)
[2016-07-24] MEDS ORDERED: ALBUTEROL/IPRATROPIUM (NEB) 3 ML AMP HHN PRN (18:00)
--- NOTE | 2016-07-24 18:17 | PN ---
DATE: 07/24/2016 SUBJECTIVE: Complains of too much pain and swelling of the ____ scrotal area. The pain requires mo rphine IM and also 2 Percocet every 4 hours to control the pain for the patient. OBJECTIVE: GENERAL: Lying down in the bed. VITAL SIGNS: Temperature 97.8, heart rate 82, respirations 18, blood pressure 132/79, saturation 98 % on room air. LABORATORY DATA: WBC 9400. Differential with 63% segmented. Hemoglobin 12.9, hematocrit 38.6. SKIN: Apparently has had some small amount of bleeding from the incision line. HEART: Regular. GENITOURINARY: Abdomen soft. Left scrotum and groin area is swollen. This is a recurrent hernia o peration. ABDOMEN: Soft. ASSESSMENT: The patient is doing relatively okay after extensive operation for recurrence of extens lien left inguinal hernia. Apparently, mesh has been applied. The wound is swollen and the scrotum is swollen as well. The patient requires a lot of medication for pain control. PLAN: Will keep the patient 1 more night in the hospital for pain control and if he doing okay, the n we can probably send him home tomorrow. Dictated By: HARLEY VIDALES MD PS/NTS Conf#: [id number] DID#: [id number] CC: TEDDY TALLEY MD;*EndCC*
--- NOTE | 2016-07-24 18:41 | PN ---
Date/Time of Note Date/Time of Note DATE: 07/24/16 TIME: 18:38 Assessment/Plan VTE Prophylaxis VTE Prophylaxis Intervention: SCD's Lines/Catheters IV Catheter Type (from Nrs): NO IV ACCESS Urinary Cath still in place: No Assessment/Plan Chief Complaint/Hosp Course ASSESSMENT AND PLAN: 1. Large recurrent left inguinal hernia status post left inguinal herniorrhaphy with mesh and hydrocele repair by Dr. Madden. Continue incentive spirometer q.1 hour while patient is awake and advanced diet as patient tolerates. Continue Percocet and morphine p.r.n. for pain and Zofran p.r.n. for nausea. 2. Hypertension. Continue hydralazine p.r.n. for systolic blood pressure above 170. 3. History of hepatitis C. 4. Current heroin and tobacco user. Sequential compression device for deep venous thrombosis prophylaxis and Pepcid for peptic ulcer disease prophylaxis. Further recommendations based on clinical course. Plan of care discussed with Dr. Hooks. Problems: Subjective 24 Hr Interval Summary Free Text/Dictation Patient still complains of pain, moderate amount of drainage from MYNOR, patient refused IV placement, pain is controlled with IM morphine and Percocet, encourage p.o. fluids intake. Exam/Review of Systems Vital Signs Vitals Vital Signs Date Time Temp Pulse Resp B/P Pulse Ox O2 Delivery O2 Flow Rate FiO2 07/24/16 12:31 97.8 82 18 132/79 98 07/24/16 04:00 Room Air Intake and Output 07/23/16 07/23/16 07/24/16 15:00 23:00 07:00 Intake Total 1200 ml 1200 ml 720 ml Output Total 50 ml 60 ml Balance 1150 ml 1200 ml 660 ml Exam PHYSICAL ASSESSMENT: GENERAL: Well-developed, well-nourished male, currently is awake, alert. HEENT: Head is atraumatic, normocephalic. Pupils equal, round, reactive to light and accommodation. Oral mucosa is pink and moist. NECK: Supple, no cervical lymphadenopathy, no thyromegaly. CHEST: Lungs clear bilaterally. There is no rhonchi, wheezes, rales noted. CARDIOVASCULAR: Normal S1, S2. No murmurs, gallops, clicks, rubs noted. ABDOMEN: Round, soft, status post surgery with MYNOR drain. Bowel sounds are present. EXTREMITIES: There is no edema, clubbing, cyanosis. Pulses equal bilaterally 2 +. SKIN: There is no rash, petechiae noted. NEUROLOGIC: Patient is awake, alert and oriented x4. Results Result Diagram: 07/24/16 0445 07/24/16 0445 Results 24 hrs Laboratory Tests Test 07/24/16 04:45 Anion Gap 14 Basophils # 0.0 Basophils % 0.3 Blood Urea Nitrogen 13 Calcium Level 8.8 Carbon Dioxide Level 26 Chloride Level 100 Creatinine 0.58 L Eosinophils # 0.0 Eosinophils % 0.3 Glucose Level 120 Hematocrit 38.6 L Hemoglobin 12.9 L Lymphocytes # 2.1 Lymphocytes % 23.3 Mean Corpuscular Hemoglobin 28.7 L Mean Corpuscular Hemoglobin Concent 33.4 Mean Corpuscular Volume 86.0 Mean Platelet Volume 10.5 H Monocytes # 1.2 H Monocytes % 12.7 H Neutrophils # 5.8 Neutrophils % 63.1 Nucleated Red Blood Cells # 0.0 Nucleated Red Blood Cells % 0.0 Platelet Count 108 L Potassium Level 4.1 Red Blood Count 4.49 L Red Cell Distribution Width 13.3 Sodium Level 136 White Blood Count 9.1 # Medications Medications Current Medications Ondansetron HCl 4 mg 4 mg Q6H PRN IV NAUSEA AND/OR VOMITING; Start 07/23/16 at 12:30 Potassium Chloride/Dextrose/ Sod Cl (D5-1/2ns + KCl 20 Meq) 1,000 ml @ 125 mls/ hr Q8H IV Last administered on 07/23/16 14:57; Admin Dose 125 MLS/HR; Start 07/23/16 at 12:07 Hydralazine HCl (Apresoline) 10 mg Q4H PRN IV ELEVATED BLOOD PRESSURE; Start at 15:00 Oxycodone/ Acetaminophen (Percocet (5/ 325)) 1 tab Q4H PRN PO PAIN LEVEL 1-5 Last administered on 07/23/16 23:56; Admin Dose 1 TAB; Start 07/23/16 at 16:00 Oxycodone/ Acetaminophen (Percocet (5/ 325)) 2 tab Q4H PRN PO PAIN LEVEL 6-10 Last administered on 07/24/16 12:51; Admin Dose 2 TAB; Start 07/23/16 at 16:00 Morphine Sulfate (morphine) 4 mg Q4H PRN IM PAIN LEVEL 4-7 Last administered on 07/24/16t 15:54; Admin Dose 4 MG; Start 07/23/16 at 18:30 Magnesium Hydroxide (Milk Of Mag) 30 ml HS PRN PO CONSTIPATION; Start 07/24/16 at 17:00 AFSHIN WHEELER Jul 24, 2016 18:40
[2016-07-24 19:17] VITALS: BP 142/81; RESP 20
[2016-07-24 20:06] VITALS: PULSE 115
[2016-07-24] MEDS: ALBUTEROL/IPRATROPIUM (NEB) 3 ML AMP HHN SCH (21:00)
[2016-07-25] MEDS: morphine 10 MG INJ IM PRN ×2 (01:04→08:09)
[2016-07-25] MEDS: ALBUTEROL/IPRATROPIUM (NEB) 3 ML AMP HHN SCH ×4 (01:54→19:55)
[2016-07-25] MEDS: OXYCODONE/ACETAMINOPHEN (5/325) TAB PO PRN ×5 (04:58→23:30)
[2016-07-25 05:42] LABS: ADD SCAN DIFF NO
[2016-07-25 05:44] LABS: BASOPHILS % 0.3 % (0.0-2.0); EOSINOPHILS # 0.1 10^3/ul (0.0-0.5); HEMATOCRIT 37.7 % (42.0-52.0); HEMOGLOBIN 12.8 g/dl (14.0-18.0); MEAN CORPUSCULAR HEMOGLOBIN 29.2 pg (29.0-33.0); MEAN CORPUSCULAR VOLUME 85.9 fl (82.0-101.0); MONOCYTE # 1.4 10^3/ul (0.3-0.9); MONOCYTES % 14.1 % (0.0-11.0); NEUTROPHIL # 6.5 10^3/ul (1.6-7.5); NEUTROPHILS % 64.4 % (39.0-77.0); PLATELET COUNT 132 10^3/UL (140-415); RED BLOOD COUNT 4.39 10^6/ul (4.70-6.10); RED CELL DISTRIBUTION WIDTH 13.2 % (11.5-14.5); WHITE BLOOD COUNT 10.1 10^3/ul (4.8-10.8)
[2016-07-25] MEDS: D5W-0.45 NACL + KCL 20 MEQ 1,000 ML IV SCH ×3 (06:10→20:07)
[2016-07-25 06:25] LABS: POTASSIUM 4.3 mmol/L (3.5-5.1)
[2016-07-25 06:28] LABS: CREATININE 0.48 mg/dl (0.61-1.24)
[2016-07-25 06:29] LABS: CALCIUM 8.5 mg/dl (8.4-10.2)
[2016-07-25 07:00] VITALS: BP 124/80; RESP 18
--- NOTE | 2016-07-25 13:33 | PN ---
DATE: 07/25/2016 Postop day #2. SUBJECTIVE: He is concerned about swelling and edema of his scrotum and the wound area. OBJECTIVE: VITAL SIGNS: Temperature 97.7, heart rate has been between 75 and 91, respirations 18, blood pressu re 174/80, saturation 94% to 97% on room air. GENITOURINARY: Ad-Burns drain has drained 30 mL semi-bloody fluid. Wound is exposed. It appe ars clean at this time, but he states that it is oozing from the wound edges, some fluid coming out. There is no swelling in the left groin area. Also along the spermatic cord there is swelling. EXTREMITIES: Legs no calf tenderness. ASSESSMENT: Status post operation of recurrent left inguinal hernia with application of the mesh. Considering traumatic nature of this operation as I understand from the operative report and also as I know the patient from the past which had severe swelling and orchitis. I think the patient shoul d be started also on antibiotics. We are going to start patient on antibiotic and keep the patient a couple of days to receive antibiotics IV. Dictated By: HARLEY YU/VALENCIA Conf#: [id number] DID#: [id number]
[2016-07-25] MEDS: metroNIDAZOLE 500 MG TAB PO SCH ×2 (14:25→22:13)
--- NOTE | 2016-07-25 16:26 | PN ---
Date/Time of Note Date/Time of Note DATE: 07/25/16 TIME: 16:22 Assessment/Plan VTE Prophylaxis VTE Prophylaxis Intervention: SCD's Lines/Catheters IV Catheter Type (from Nrs): NO IV ACCESS Urinary Cath still in place: No Assessment/Plan Chief Complaint/Hosp Course ASSESSMENT AND PLAN: 1. Large recurrent left inguinal hernia status post left inguinal herniorrhaphy with mesh and hydrocele repair by Dr. Madden. Continue incentive spirometer q.1 hour while patient is awake and advanced diet as patient tolerates. Continue Percocet and morphine p.r.n. for pain and Zofran p.r.n. for nausea. 2. Hypertension. Continue hydralazine p.r.n. for systolic blood pressure above 170. 3. History of hepatitis C. 4. Current heroin and tobacco user. Sequential compression device for deep venous thrombosis prophylaxis and Pepcid for peptic ulcer disease prophylaxis. Further recommendations based on clinical course. Plan of care discussed with Dr. Hooks. Problems: Subjective 24 Hr Interval Summary Free Text/Dictation Patient complains of pain, anxious. Exam/Review of Systems Vital Signs Vitals Vital Signs Date Time Temp Pulse Resp B/P Pulse Ox O2 Delivery O2 Flow Rate FiO2 07/25/16 13:58 92 18 94 21 07/25/16 07:00 97.7 124/80 07/24/16 04:00 Room Air Intake and Output 07/24/16 07/24/16 07/25/16 15:00 23:00 07:00 Intake Total 1900 ml 500 ml Output Total 20 ml 10 ml Balance 1880 ml 490 ml Exam PHYSICAL ASSESSMENT: GENERAL: Well-developed, well-nourished male, currently is awake, alert. HEENT: Head is atraumatic, normocephalic. Pupils equal, round, reactive to light and accommodation. Oral mucosa is pink and moist. NECK: Supple, no cervical lymphadenopathy, no thyromegaly. CHEST: Lungs clear bilaterally. There is no rhonchi, wheezes, rales noted. CARDIOVASCULAR: Normal S1, S2. No murmurs, gallops, clicks, rubs noted. ABDOMEN: Round, soft, status post surgery with MYNOR drain. Bowel sounds are present. EXTREMITIES: There is no edema, clubbing, cyanosis. Pulses equal bilaterally 2 +. SKIN: There is no rash, petechiae noted. NEUROLOGIC: Patient is awake, alert and oriented x4. Results Result Diagram: 07/25/16 0453 07/25/16 0453 Results 24 hrs Laboratory Tests Test 07/25/16 04:53 Anion Gap 16 Basophils # 0.0 Basophils % 0.3 Blood Urea Nitrogen 11 Calcium Level 8.5 Carbon Dioxide Level 25 Chloride Level 100 Creatinine 0.48 L Eosinophils # 0.1 Eosinophils % 1.0 Glucose Level 117 Hematocrit 37.7 L Hemoglobin 12.8 L Lymphocytes # 2.0 Lymphocytes % 20.0 Mean Corpuscular Hemoglobin 29.2 Mean Corpuscular Hemoglobin Concent 34.0 Mean Corpuscular Volume 85.9 Mean Platelet Volume 10.0 Monocytes # 1.4 H Monocytes % 14.1 H Neutrophils # 6.5 Neutrophils % 64.4 Nucleated Red Blood Cells # 0.0 Nucleated Red Blood Cells % 0.0 Platelet Count 132 #L Potassium Level 4.3 Red Blood Count 4.39 L Red Cell Distribution Width 13.2 Sodium Level 137 White Blood Count 10.1 Medications Medications Current Medications Ondansetron HCl 4 mg 4 mg Q6H PRN IV NAUSEA AND/OR VOMITING; Start 07/23/16 at 12:30 Potassium Chloride/Dextrose/ Sod Cl (D5-1/2ns + KCl 20 Meq) 1,000 ml @ 125 mls/ hr Q8H IV Last administered on 07/23/16 14:57; Admin Dose 125 MLS/HR; Start 07/23/16 at 12:07 Hydralazine HCl (Apresoline) 10 mg Q4H PRN IV ELEVATED BLOOD PRESSURE; Start at 15:00 Oxycodone/ Acetaminophen (Percocet (5/ 325)) 1 tab Q4H PRN PO PAIN LEVEL 1-5 Last administered on 07/23/16 23:56; Admin Dose 1 TAB; Start 07/23/16 at 16:00 Oxycodone/ Acetaminophen (Percocet (5/ 325)) 2 tab Q4H PRN PO PAIN LEVEL 6-10 Last administered on 07/25/16 14:28; Admin Dose 2 TAB; Start 07/23/16 at 16:00 Morphine Sulfate (morphine) 4 mg Q4H PRN IM PAIN LEVEL 4-7 Last administered on 07/25/16 08:09; Admin Dose 4 MG; Start 07/23/16 at 18:30 Magnesium Hydroxide (Milk Of Mag) 30 ml HS PRN PO CONSTIPATION; Start 07/24/16 at 17:00 Ciprofloxacin (Cipro) 500 mg BID@,18 PO ; Start 07/25/16 at 18:00 Metronidazole (Flagyl) 500 mg Q8 PO Last administered on 07/25/16t 14:25; Admin Dose 500 MG; Start 07/25/16 at 14:00 AFSHIN WHEELER Jul 25, 2016 16:25
[2016-07-25] MEDS: CIPROFLOXACIN 500 MG TAB PO SCH (18:02)
[2016-07-25 19:00] VITALS: BP 125/70; RESP 19
[2016-07-26 00:07] VITALS: BP 122/70; PULSE 88; RESP 18
[2016-07-26] MEDS: ALBUTEROL/IPRATROPIUM (NEB) 3 ML AMP HHN SCH ×3 (01:36→14:09)
[2016-07-26 04:00] VITALS: BP 140/66; PULSE 74; RESP 17
[2016-07-26] MEDS: D5W-0.45 NACL + KCL 20 MEQ 1,000 ML IV SCH ×2 (04:07→12:07)
[2016-07-26] MEDS: metroNIDAZOLE 500 MG TAB PO SCH ×2 (05:14→13:59)
[2016-07-26] MEDS: CIPROFLOXACIN 500 MG TAB PO SCH ×2 (05:14→17:27)
[2016-07-26] MEDS: OXYCODONE/ACETAMINOPHEN (5/325) TAB PO PRN ×3 (05:15→17:27)
[2016-07-26 08:27] VITALS: BP 118/78; RESP 18
--- NOTE | 2016-07-26 15:35 | PN ---
DATE: 07/26/2016 Status post repair of left recurrent inguinal hernia. SUBJECTIVE: Feels better, pain is under control now. States that still the incision line has a lit tle bit of discharge. Ad-Burns is in place. OBJECTIVE: VITAL SIGNS: Temperature 97.8, heart rate between 110, 94 and 74, respirations 18, blood pressure 1 18/78. Saturation 95% to 100% on room air. ABDOMEN: The wound is clean. It has been painted with Betadine and the dressing has been changed. Still there is swelling in the left groin area and swelling of the scrotum is slightly less t gastelum before. The patient has been eating and having bowel movement. LABORATORY DATA: The patient has refused lab workup. ASSESSMENT: Status post repair of the left inguinal hernia, recurrent, with mesh. The patient is s table and has been tolerating diet and the pain is under control. PLAN: This patient can be discharged home today with prescriptions for antibiotics, Flagyl and cipr ofloxacin and also pain medication. The patient to be followed by Dr. Madden in the office. The pat ient to call the office today or tomorrow and make an appointment. Dictated By: HARLEY YU/VALENCIA Conf#: [id number] DID#: [id number]
--- NOTE | 2016-07-26 16:50 | PDOCDIS ---
Discharge Instructions CONDITION Patient Condition: Stable HOME CARE INSTRUCTIONS: Diet Instructions: Regular ACTIVITY: Activity Restrictions: Slowly Increase Activity Rest between Activity Avoid heavy lifting Do not Drive Do not operate Machinery Avoid Heavy Housework Bathing Restrictions: Sponge Bath FOLLOW UP/APPOINTMENTS Appointments FU with Primary MD x 1 week FU with surgery as recommended Call 911 or go to the nearest hospital if symptoms worsen JACQUES KAY Jul 26, 2016 16:50
[2016-07-26] MEDS ORDERED: FAMO-18 PO (16:53)
[2016-07-26] MEDS ORDERED: Oxycodone/Acetamin (5/325) PO ×2 (16:53→17:00)
[2016-07-26] MEDS ORDERED: DOCU-144 PO (16:53)
--- NOTE | 2016-07-26 17:00 | DS ---
Date/Time of Note Date/Time of Note DATE: 07/26/16 TIME: 17:00 Discharge Summary Admission/Discharge Info Admit Date/Time Jul 25, 2016 at 12:52 Discharge Date/Time Hospital Course ASSESSMENT AND PLAN: 1. Large recurrent left inguinal hernia status post left inguinal herniorrhaphy with mesh and hydrocele repair by Dr. Madden. Continue incentive spirometer q.1 hour while patient is awake and advanced diet as patient tolerates. Continue Percocet and morphine p.r.n. for pain and Zofran p.r.n. for nausea. 2. Hypertension. Continue hydralazine p.r.n. for systolic blood pressure above 170. 3. History of hepatitis C. 4. Current heroin and tobacco user. Sequential compression device for deep venous thrombosis prophylaxis and Pepcid for peptic ulcer disease prophylaxis. Further recommendations based on clinical course. Plan of care discussed with Dr. Hooks. Home Meds Active Scripts [Oxycodone/Acetamin (5/325)] 1 TAB TAB No Conflict Check, 1 TAB PO Q6 Y for PAIN LEVEL 7-10, #14 Prov:JACQUES KAY 07/26/16 Famotidine* (Pepcid*) 20 Mg Tablet, 20 MG PO BID for 4 Days, #20 TAB Prov:JACQUES KAY 07/26/16 Docusate Sodium* (Colace*) 100 Mg Capsule, 100 MG PO BID, #30 CAP Prov:JACQUES KAY 07/26/16 Lactobacillus Acidophilus* (Lactinex*) 1 Tab Chew, 1 TAB PO TID for 7 Days, TAB Prov:GARRISON EDGE 06/15/16 Hydrocodone Bit-Acetaminophen (Hydrocodone Bit-APAP) 5-325MG Tablet, 1 TAB PO Q6H Y for breakthrough pain, #30 TAB Prov:GARRISON EDGE 06/15/16 Hydrochlorothiazide* (Hydrochlorothiazide*) 25 Mg Tab, 25 MG PO DAILY for 30 Days, TAB 2 Refills Prov:GARRISON EDGE 06/15/16 Discontinued Scripts Doxycycline Hyclate* (Doxycycline Hyclate*) 100 Mg Tablet., 100 MG PO BID for 7 Days, TAB Prov:GARRISON EDGE 06/15/16 Levofloxacin* (Levaquin*) 500 Mg Tablet, 500 MG PO DAILY for 7 Days, TAB Prov:GARRISON EDGE 06/15/16 JACQUES KAY Jul 26, 2016 17:00
[2016-07-26] MEDS ORDERED: VITAMIN A & D 5 GM OINT PACKET TOP ONE (17:34)
== END 2016-07-26 18:20 | disposition home or self-care (01) | DRG 352 ==
LOC: SDS 06:50 → MS1 12:08 → INTOOBSV 12:08 → MS1 13:03 → OBSVTOIN 07-25 12:52
PROVIDERS: ADMIT Surgery Surgical Oncology; ATTEND Surgery Surgical Oncology
PROC: 0VQ Male Reproductive System, Repair (ICD-10-PCS; 2016-07-23)
PROC: 0YU60JZ Supplement Left Inguinal Region with Synthetic Substitute, Open Approach (ICD-10-PCS; principal; 2016-07-23 09:00)
DX: K40.91 Unilateral inguinal hernia, without obstruction or gangrene, recurrent (principal); I10 Essential (primary) hypertension; N43.3 Hydrocele, unspecified; F17.200 Nicotine dependence, unspecified, uncomplicated; B19.20 Unspecified viral hepatitis C without hepatic coma; F11.90 Opioid use, unspecified, uncomplicated
CPT/HCPCS: 80048; 85025; 85610; 85730; 93005; 94640; 94664; C1781; G0378; J0330; J0360; J0690; J2175; J2270; J2710; J3010; J3480

== ENCOUNTER 2017-02-04 15:15 | Emergency (ER) | payer SELFPAY ==
[~2017-02-04] VITALS: Ht 162.6 cm; Wt 88.0 kg
[~2017-02-04 15:15] MED LIST changes: -BUPIVACAINE 0.5%/EPI (SDV) 30 ML INJ INJ ONE; +DOCU-144 PO; -DOXY100T20 PO; +FAMO-96 PO; -HYD25 PO; +HYDR25TA6 PO; -LEVO500T72 PO; +Oxycodone/Acetamin (5/325) PO
[2017-02-04 15:18] VITALS: Ht 162.6 cm; Wt 88.0 kg
== END 2017-02-04 20:30 | disposition left against medical advice (07) ==
LOC: E/R 15:15
DX: Z53.21 Procedure and treatment not carried out due to patient leaving prior to being seen by health care provider (principal)

== ENCOUNTER 2017-03-11 00:43 | Emergency (ER) | payer SELFPAY ==
[~2017-03-11] VITALS: Ht 182.9 cm; Wt 89.0 kg
[2017-03-11 01:05] VITALS: Ht 182.9 cm; Wt 89.0 kg
== END 2017-03-11 03:15 | disposition left against medical advice (07) ==
LOC: FTE 00:43
DX: Z53.21 Procedure and treatment not carried out due to patient leaving prior to being seen by health care provider (principal)